=== PATIENT | female | born 1980 ===

== ENCOUNTER 2021-04-30 18:02 | Emergency (ER) | payer OTHER, SELFPAY ==
[2021-04-30 19:06] LABS: COVID-19 Test Negative (Negative); IDNOW Serial# 08D9AD1C
[2021-04-30 19:13] VITALS: BP 142/67; PULSE 84; RESP 18; TEMP 36.9; O2SAT 100; BMI 26.9
--- NOTE | 2021-04-30 19:51 | ED_ITS ---
HPI - URI/Sore Throat General Chief Complaint: Upper Respiratory Symptoms Stated Complaint: covid like Time Seen by Provider: 04/30/21 19:50 Source: patient Mode of arrival: ambulatory Limitations: no limitations History of Present Illness HPI Narrative: Patient claims multiple family members sick with COVID not vaccinated complaining of dry cough shortness of breath for last 2 days no fever no loss of taste sensation on arrival patient was saturating 100% on room air Related Data Previous Rx's Medication Instructions Recorded omeprazole 20 mg capsule,delayed 20 mg PO BID #180 cap 08/18/20 release Allergies Allergy/AdvReac Type Severity Reaction Status Date / Time naproxen [From NAPROSYN] Allergy Intermediate PALPITATION Unverified 04/30/21 19:12 S trazodone [TRAZODONE] Allergy Unknown UNKNOWN, Verified 04/30/21 19:12 palpitations Review of Systems Review of Systems: Yes all other systems are reviewed and are negative [facility] Past Medical History Medical History Asthma Breast cancer Fibromyalgia Surgical History History of lumpectomy Family History Family History Father Thrombocytopenia Mother HTN (hypertension) CVD (cardiovascular disease) CHF (congestive heart failure) Maternal Grandfather CVD (cardiovascular disease) S/P triple vessel bypass Sister No problems noted. Sister No problems noted. Daughter No problems noted. Daughter No problems noted. Daughter No problems noted. Social History Social History Advance Directives: No Patient : No Physical Exam Vital Signs: Vital Signs: Last Vital Signs Temp 98.4 F 04/30/21 19:13 Pulse 84 04/30/21 19:13 Resp 18 04/30/21 19:13 BP 142/67 H 04/30/21 19:13 Pulse Ox 100 04/30/21 19:13 Body Mass Index 26.9 Appearance: Alert. Oriented X3. No acute distress. Eyes: PERRLA, No Nystagmus ENT: Pharynx normal. Oral Mucosa moist Neck: Normal inspection. Neck supple. CVS: Normal heart rate and rhythm. Pulses normal. Respiratory: No respiratory distress. Equal air entry bilateral, no wheezing/rales/rhonchi Abdomen: Soft and nontender. Bowel sounds are present, Skin: Skin warm and dry. Normal skin color. Normal skin turgor. Extremities: No lower extremity edema. No calf tenderness Neuro: Oriented X 3. MDM - URI/Sore Throat Lab Data Labs: Lab Results 04/30/21 Range/Units 18:42 COVID-19 (TIFFANIE) Negative (Negative) COVID-19 Clin Com See Note Discharge Plan Discharge Clinical Impression: COVID-19 Patient Disposition: Home, Self-Care Instructions: COVID-19 (Coronavirus Disease 2019) (ED) Additional Instructions: Your exposed to COVID patients although your test is negative you may turn positive Self isolate as advised for 2 weeks Drink plenty of fluids Tylenol for fever and pain Prescriptions: No Action omeprazole 20 mg capsule,delayed release(DR/EC) 20 mg PO BID Qty: 180 RF: 0 Interventions: ED Discharge Assessment Last Done: 04/30/21 20:11 Discharge Date/Time: 04/30/21 20:17
== END 2021-04-30 20:17 | disposition home or self-care (01) ==
PROVIDERS: Emergency Provider Internal Medicine; PCP Family Medicine
DX: U07.1 COVID-19 (principal); R05 Cough; R06.02 Shortness of breath
CPT/HCPCS: 36415; 87635; 99283

== ENCOUNTER 2021-08-18 11:26 | Outpatient (REF) | payer OTHER, SELFPAY ==
[2021-08-18 11:48] LABS: MANUAL DIFF FLAG NO
[2021-08-18 12:00] LABS: Basophils Percent Auto 0.3 % (0-2); Eosinophils Absolute Auto 0.2 X10*3/uL (0.0-0.4); Eosinophils Percent Auto 2.2 % (0-4); Hematocrit 34.8 % (37.0-47.0); Hemoglobin 11.1 g/dl (12.0-16.0); Imm Gran Abs Auto 0.03 X10*3/uL (0.00-0.03); Imm Gran Pct Auto 0.3 % (0.0-0.4); Lymphocytes Absolute Auto 3.1 X10*3/uL (1.2-4.9); Lymphocytes Percent Auto 33.7 % (20-40); Mean Corpuscular HGB Conc 31.9 g/dl (31.0-35.0); Mean Corpuscular Hemoglobin 31.3 pg (27.0-33.0); Mean Platelet Volume 9.5 fL (9.4-12.3); Monocytes Absolute Auto 0.4 X10*3/uL (0.1-1.2); Neutrophils Absolute Auto 5.5 x10*3/uL (2.0-8.3); Neutrophils Percent Auto 59.5 % (45-73); Platelet Count 267 X10*3/uL (160-400); Red Blood Count 3.55 X10*6/uL (4.20-5.50); Red Cell Distribution Width 13.6 % (11.0-16.0); White Blood Count 9.2 X10*3/uL (4.8-10.8)
[2021-08-18 12:26] LABS: Alanine Aminotransferase 22 U/L (0-31); Aspartate Amino Transferase 52 U/L (5-31); Estimated Glomerular Filt Rate > 60
[2021-08-18 13:50] LABS: CT PCR NOT DETECTED (Not Detect.); NG PCR NOT DETECTED (Not Detect.)
[2021-08-19 03:37] LABS: Syphilis Screen Nonreactive (Nonreactive)
[2021-08-19 03:56] LABS: HBsAGNum1 0.16 S/CO (0.00-0.99); Hepatitis B Surface Antigen Negative (Negative)
[2021-08-19 15:30] LABS: HIV RNA PCR Qn Copies 30 copies/mL (NOT DETECTED); HIV RNA PCR Qn Log Copies 1.48 (NOT DETECTED)
[2021-08-25 10:01] LABS: HCV Log PCR <1.18 NOT DETECTED Log IU/mL (NOT DETECTED); HepC Viral Load <15 NOT DETECTED IU/mL (NOT DETECTED)
== END 2021-08-18 11:27 | disposition home or self-care (01) ==
LOC: HO.LAB 11:26
PROVIDERS: PCP Family Medicine; Visit Provider Internal Medicine Infectious Disease
DX: B20 Human immunodeficiency virus [HIV] disease (principal)
CPT/HCPCS: 82565; 84450; 84460; 85025; 86780; 87340; 87491; 87522; 87536; 87591

== ENCOUNTER 2021-09-29 12:30 | Outpatient (REF) | payer OTHER, SELFPAY ==
[2021-09-29 13:25] LABS: MANUAL DIFF FLAG NO
[2021-09-29 13:31] LABS: Basophils Percent Auto 0.4 % (0-2); Eosinophils Absolute Auto 0.1 X10*3/uL (0.0-0.4); Eosinophils Percent Auto 1.7 % (0-4); Hematocrit 34.3 % (37.0-47.0); Hemoglobin 10.8 g/dl (12.0-16.0); Imm Gran Abs Auto 0.01 X10*3/uL (0.00-0.03); Imm Gran Pct Auto 0.2 % (0.0-0.4); Lymphocytes Absolute Auto 1.9 X10*3/uL (1.2-4.9); Mean Corpuscular HGB Conc 31.5 g/dl (31.0-35.0); Mean Corpuscular Hemoglobin 31.1 pg (27.0-33.0); Mean Corpuscular Volume 98.8 fL (80.0-98.0); Mean Platelet Volume 9.7 fL (9.4-12.3); Monocytes Absolute Auto 0.4 X10*3/uL (0.1-1.2); Monocytes Percent Auto 7.7 % (2-11); Neutrophils Absolute Auto 2.9 x10*3/uL (2.0-8.3); Platelet Count 239 X10*3/uL (160-400); Red Blood Count 3.47 X10*6/uL (4.20-5.50); White Blood Count 5.3 X10*3/uL (4.8-10.8)
[2021-09-29 13:49] LABS: Alanine Aminotransferase 10 U/L (0-31); Albumin Level 3.9 g/dL (3.5-5.0); Alkaline Phosphatase 86 U/L (39-117); Anion Gap 8 (12-20); Aspartate Amino Transferase 22 U/L (5-31); Bilirubin Total 0.2 mg/dL (0.0-1.0); Blood Urea Nitrogen 17 mg/dL (9-16); Calcium 8.9 mg/dL (8.4-10.2); Carbon Dioxide 31 mmol/L (22-29); Chloride 105 mmol/L (96-108); Cholesterol 223 mg/dL; Estimated Glomerular Filt Rate > 60; Glucose Random 105 mg/dL (60-115); HDL Cholesterol 51 mg/dL; LDL Cholesterol Calculated 135 mg/dl; Potassium 3.9 mmol/L (3.3-5.1); Sodium 140 mmol/L (135-145); Total Protein 8.2 g/dL (6.5-8.0); Triglycerides 187 mg/dL
[2021-09-29 14:03] LABS: TSH reflex Free T4 2.91 uIU/mL (0.32-4.0)
[2021-09-30 03:41] LABS: HBS Num1 > 1000.00 mIU/mL (0-7.99); HBc Num1 0.24 S/CO (0.00-0.79); Hepatitis B Core Antibody Nonreactive (Nonreactive); ~HepC Num1 4.57 S/CO (0.00-0.79); ~Hepatitis B Surface Antibody REACTIVE (Nonreactive); ~Hepatitis C Antibody Reactive (Nonreactive)
[2021-09-30 03:49] LABS: Hepatitis B Surface Antigen Negative (Negative)
[2021-09-30 08:01] LABS: Follicle Stimulating Hormone 28.5 mIU/mL; Lutenizing Hormone 49.5 mIU/mL
[2021-10-02 15:17] LABS: TS Negative Control Passed; TS Panel A 0; TS Panel B 0; TS Positive Control Passed; TSpotTB Negative (Negative)
[2021-10-02 18:32] LABS: HIV RNA PCR Qn Copies 76300 Copies/mL; HIV RNA PCR Qn Log Copies 4.88 Log cps/mL
== END 2021-09-29 12:31 | disposition home or self-care (01) ==
LOC: HO.WFDLDS 12:30
PROVIDERS: Visit Provider Family Medicine
DX: Z00.00 Encounter for general adult medical examination without abnormal findings (principal); Z11.1 Encounter for screening for respiratory tuberculosis; Z11.3 Encounter for screening for infections with a predominantly sexual mode of transmission; Z11.4 Encounter for screening for human immunodeficiency virus [HIV]; F32.A Depression, unspecified; F41.9 Anxiety disorder, unspecified; D64.9 Anemia, unspecified; N91.2 Amenorrhea, unspecified; Z21 Asymptomatic human immunodeficiency virus [HIV] infection status
CPT/HCPCS: 36415; 80053; 80061; 83001; 83002; 84443; 85025; 86481; 86704; 86706; 86803; 87340; 87536

== ENCOUNTER 2021-12-02 12:44 | Emergency (ER) | payer OTHER, SELFPAY ==
--- NOTE | ~2021-12-02 | CT_ITS ---
EXAMINATION: CT ABDOMEN AND PELVIS WITHOUT CONTRAST CLINICAL INFORMATION: Right flank pain. COMPARISON: 06/28/2019 CT scan of the abdomen and pelvis. TECHNIQUE: Multidetector volumetric imaging was performed from the superior aspect of the liver through the pubic symphysis. Sagittal and coronal reformatted images were obtained on the technologist's workstation. Lack of intravenous and oral contrast limits visceral evaluation. This CT examination was performed using dose optimization techniques as appropriate, variously including the following: *Automated exposure control *Adjustment of mA and/or kV according to patient size (this includes techniques or standardized protocols for targeted exams where dose is matched to indication/reason for exam; i.e. extremities or head) *Use of iterative reconstruction technique DLP: 558 mGy-cm FINDINGS: LUNG BASES: The visualized lung bases are unremarkable. LIVER, GALLBLADDER, AND BILIARY TREE: Unremarkable. PANCREAS: Unremarkable. SPLEEN: Unremarkable. ADRENAL GLANDS: Unremarkable. KIDNEYS AND URETERS: Mild perinephric stranding is seen along the inferior margin of the right kidney. No nephrolithiasis or hydroureteronephrosis. BLADDER: Unremarkable. GASTROINTESTINAL TRACT: The stomach, small bowel and appendix are unremarkable. The colon shows mild to moderate scattered stool without surrounding abnormality. The rectum is unremarkable. ABDOMINAL WALL: No significant hernia is appreciated. LYMPH NODES: No lymphadenopathy. VASCULAR: Unremarkable. PELVIC VISCERA: Elongated anteverted and mildly retroflexed uterus without significant change. No adnexal abnormality. OSSEOUS STRUCTURES: L5-S1 mild disc space narrowing without significant change. CT/CT abdomen pelvis wo con IMPRESSION: 1. Mild perinephric stranding along the inferior margin of the right kidney without nephrolithiasis or hydronephrosis. This is nonspecific, but was not seen on the 2019 study. This could be chronic however, given the right flank pain, this could represent sequelae of a recently passed calculus. No other significant abnormality is seen. If pain persists or worsens, this can be monitored for change with renal ultrasound as indicated.
[2021-12-02 12:57] VITALS: BP 136/65; PULSE 102; RESP 19; TEMP 38.7; O2SAT 96; BMI 30.1
--- NOTE | 2021-12-02 13:05 | PC.NURSE ---
PT STATES SHE TOOK 6 IBUPROFEN 3 HOURS AGO AND CANNOT TAKE TYLENOL.
[2021-12-02 13:10] LABS: MANUAL DIFF FLAG NO
[2021-12-02 13:14] LABS: Appearance Urine CLOUDY; Color Urine YELLOW; Glucose Urine UA NEG (NEG); Leukocyte Esterase Urine 1+ (NEG); Nitrite Urine POS (NEG); UACC Culture Trigger YES; Urine Blood TRACE (NEG); Urine Ketones NEG (NEG); Urine Protein TRACE MG/DL (NEG-TRACE)
[2021-12-02 13:17] LABS: UPreg QC Valid YES; Urine Pregnancy NEGATIVE (NEGATIVE)
[2021-12-02 13:19] LABS: Basophils Percent Auto 0.3 % (0-2); Eosinophils Percent Auto 0.3 % (0-4); Hematocrit 35.3 % (37.0-47.0); Hemoglobin 11.5 g/dl (12.0-16.0); Imm Gran Abs Auto 0.05 X10*3/uL (0.00-0.03); Imm Gran Pct Auto 0.5 % (0.0-0.4); Lymphocytes Absolute Auto 1.8 X10*3/uL (1.2-4.9); Lymphocytes Percent Auto 19.6 % (20-40); Mean Corpuscular HGB Conc 32.6 g/dl (31.0-35.0); Mean Corpuscular Volume 95.1 fL (80.0-98.0); Mean Platelet Volume 9.5 fL (9.4-12.3); Monocytes Absolute Auto 0.6 X10*3/uL (0.1-1.2); Monocytes Percent Auto 6.7 % (2-11); Neutrophils Absolute Auto 6.7 x10*3/uL (2.0-8.3); Neutrophils Percent Auto 72.6 % (45-73); Platelet Count 233 X10*3/uL (160-400); Red Blood Count 3.71 X10*6/uL (4.20-5.50); Red Cell Distribution Width 13.5 % (11.0-16.0); White Blood Count 9.3 X10*3/uL (4.8-10.8)
[2021-12-02 13:25] LABS: WBC Urine 50-75 /HPF (0-4)
[2021-12-02 13:26] LABS: Bacteria Urine 3+ /LPF; Squamous Epithelial Cell Urine 1+ /LPF
[2021-12-02 13:35] LABS: Alanine Aminotransferase 10 U/L (0-31); Albumin Level 4.2 g/dL (3.5-5.0); Alkaline Phosphatase 84 U/L (39-117); Anion Gap 11 (12-20); Aspartate Amino Transferase 21 U/L (5-31); Bilirubin Total 0.5 mg/dL (0.0-1.0); Blood Urea Nitrogen 14 mg/dL (9-16); Calcium 9.3 mg/dL (8.4-10.2); Carbon Dioxide 27 mmol/L (22-29); Chloride 100 mmol/L (96-108); Creatinine Clr Calc Pharmacy 73.5; Estimated Glomerular Filt Rate > 60; Glucose Random 97 mg/dL (60-115); Potassium 3.7 mmol/L (3.3-5.1); Sodium 134 mmol/L (135-145); Total Protein 7.8 g/dL (6.5-8.0)
--- NOTE | 2021-12-02 14:00 | ED_ITS ---
HPI - General Adult General Chief complaint: Abdominal Pain Stated complaint: kidney pain/fever/BP low Time Seen by Provider: 12/02/21 13:13 Source: patient Mode of arrival: ambulatory Limitations: no limitations History of Present Illness HPI narrative: Patient comes to the emergency room complaining of fever, chills, dysuria, no hematuria, and complaining of right-sided flank pain. Patient states that she has history of UTIs and kidney stones. Patient states she has been symptomatic for about 2 days now. Patient states that she has not had any kidney stones for 4 years. However, recently she has not been following her diet. Related Data Previous Rx's Medication Instructions Recorded omeprazole 20 mg capsule,delayed 20 mg PO BID #180 cap 08/18/20 release clonidine HCl 0.1 mg tablet 0.1 mg PO BID PRN 30 Days #60 tab 10/26/21 duloxetine 30 mg capsule,delayed 30 mg PO BID 30 Days #60 cap 10/26/21 release levofloxacin 500 mg tablet 500 mg PO DAILY #10 tab 12/02/21 Allergies Allergy/AdvReac Type Severity Reaction Status Date / Time naproxen [From NAPROSYN] Allergy Intermediate PALPITATION Verified 11/13/21 08:57 S trazodone [TRAZODONE] Allergy Unknown UNKNOWN, Verified 11/13/21 08:57 palpitations Review of Systems Review of Systems: Constitutional : No Weight loss, complaining of fever and chills, No Night Sweats, No Fatigue, No Malaise ENT/Mouth : No Hearing loss, No Ear Pain, No Nasal Congestion, No Sinus Pain, No Hoarseness, No sore throat, No Rhinorrhea, No Swallowing Difficulty Eyes: No Eye Pain, No Swelling, No Redness, No Foreign Body, No Discharge, No Vision Changes Cardiovascular : No Chest Pain, No SOB, No Dyspnea on Exertion, No Orthopnea, No Edema, No Palpitations Respiratory : No Cough, No Sputum, No Wheezing, No Smoke Exposure, No Dyspnea Gastrointestinal : No Nausea, No Vomiting, No Diarrhea, No Constipation, No abdominal Pain, No Hematochezia, No Melena Genitourinary : no irregular bleeding complaining of dysuria and frequency, No Hematuria, No Urinary Incontinence, complaining of right-sided flank pain, No Urinary Flow Changes, No Hesitancy Musculoskeletal : No joint pain, No Myalgias, No Joint Swelling Skin : No Skin Lesions, No rash Neuro : No Weakness, No Numbness, No Paresthesias, No Loss of Consciousness, No Dizziness, No Headache Psych : No Anxiety/Panic, No Depression, No SI/HI/AH/VH, No Social Issues, Heme/Lymph: No Bruising, No Bleeding,No Lymphadenopathy Endocrine : No Polyuria, No Polydipsia, No Temperature Intolerance [facility] Past Medical History Medical History (Updated 12/02/21 @ 14:05 by Adelaida Mccarty MD) Asthma Breast cancer Fibromyalgia History of hepatitis C History of heroin abuse HIV positive Kidney stones Surgical History History of lumpectomy Family History Family History Father Thrombocytopenia Mother HTN (hypertension) CVD (cardiovascular disease) CHF (congestive heart failure) Maternal Grandfather CVD (cardiovascular disease) S/P triple vessel bypass Sister No problems noted. Sister No problems noted. Daughter No problems noted. Daughter No problems noted. Daughter No problems noted. Social History Social History Housing: Apartment Alcohol intake: never Patient Tobacco Use Status: Former Tobacco user Cigarettes Per Day: 2 e-Cigarette/Vaping Use: Never Used Second Hand Smoke Exposure: Yes Use of substances other than those prescribed or required for medical reasons: No Advance Directives: No Advance Directives Information Provided: Yes Patient : No service: No Current occupational status: unemployed Current occupational exposures/hazards: No Cognitive needs: No Hearing needs: No Vision needs: No Physical Exam ED Vital Signs: Vital Signs - 24 hr 12/02/21 12:57 12/02/21 14:16 Temperature 101.7 F H 102.8 F H Pulse Rate 102 H 86 Respiratory Rate 19 18 Blood Pressure 136/65 106/63 Pulse Oximetry 96 99 BMI result Body Mass Index 30.1 Const Other: Appearance: Alert. Oriented X3. No acute distress. She bring Eyes: Pupils equal, round and reactive to light. ENT: Pharynx normal. Neck: Normal inspection. Neck supple. No lymph nodes noted. No crepitus CVS: Normal heart rate and rhythm. Pulses normal. Normal S1 and S2 Respiratory: No respiratory distress. Breath sounds normal. No Wheezing. No rales Abdomen: Soft and nontender. No rigidity. No distention. Back: Positive CVA tenderness on the right side Skin: Skin warm and dry. Normal skin color. Normal skin turgor. Extremities: No lower extremity edema. No Lacerations. No Rash Neuro: Oriented X 3. No motor deficit. No sensory deficit. Moving all extremities. No slurred speech. CN 2 through 12 grossly intact Psych: calm, cooperative, normal affect Course Course Course Narrative: I discussed with the patient that she has pyelonephritis, IV fluids (based off an ideal body weight of 55 kg, patient is obese), Levaquin has been started. Also, I discussed with the patient that we will do a CT scan to make sure she does not stone that may be becoming infected. I discussed with the patient that I recommend hospitalization. However, patient states that she refuses to stay in the hospital. Her partner has a medical appointment today he cannot miss, and is unwilling to stay. Patient states that if anything changes she will come back. CT scan shows that possibly patient passed already a kidney stone. However, patient does have pyelonephritis. I discussed with the patient that she should be admitted, but again she refused admission. The IV antibiotics were ordered but per patient's nurse, they were not given. Patient states that she does not want IV antibiotics, she would like to have p.o. antibiotics and be discharged. After her antibiotics, patient will be leaving against medical advice. Patient is aware that the sepsis may worsen. Patient states she is aware of the risks, states that if anything changes she will return to the emergency room Medical Decision Making Lab Data Result diagrams: 12/02/21 13:06 12/02/21 13:06 Labs: Lab Results 12/02/21 12/02/21 12/02/21 Range/Units 13:06 13:06 13:06 WBC 9.3 (4.8-10.8) X10*3/uL RBC 3.71 L (4.20-5.50) X10*6/uL Hgb 11.5 L (12.0-16.0) g/dl Hct 35.3 L (37.0-47.0) % MCV 95.1 (80.0-98.0) fL MCH 31.0 (27.0-33.0) pg MCHC 32.6 (31.0-35.0) g/dl RDW 13.5 (11.0-16.0) % Plt Count 233 (160-400) X10*3/uL MPV 9.5 (9.4-12.3) fL Immature Gran % (Auto) 0.5 H (0.0-0.4) % Neut % (Auto) 72.6 (45-73) % Lymph % (Auto) 19.6 L (20-40) % Brule % (Auto) 6.7 (2-11) % Eos % (Auto) 0.3 (0-4) % Baso % (Auto) 0.3 (0-2) % Lymph # (Auto) 1.8 (1.2-4.9) X10*3/uL Brule # (Auto) 0.6 (0.1-1.2) X10*3/uL Eos # (Auto) 0.0 (0.0-0.4) X10*3/uL Baso # (Auto) 0.0 (0.0-0.2) X10*3/uL Abs Immat Gran (auto) 0.05 H (0.00-0.03) X10*3/uL Absolute Neuts (auto) 6.7 (2.0-8.3) x10*3/uL Absolute Nucleated RBC 0.000 (0.0-0.012) X10*3/uL Nucleated RBC % (auto) 0.0 (0.0-0.2) /100WBC Sodium 134 L (135-145) mmol/L Potassium 3.7 (3.3-5.1) mmol/L Chloride 100 (96-108) mmol/L Carbon Dioxide 27 (22-29) mmol/L Anion Gap 11 L (12-20) BUN 14 (9-16) mg/dL Creatinine 0.97 (0.5-1.4) mg/dL Estim Creat Clear Calc 73.5 Estimated GFR > 60 Random Glucose 97 (60-115) mg/dL Lactic Acid (0.5-2.0) mmol/L Calcium 9.3 (8.4-10.2) mg/dL Total Bilirubin 0.5 (0.0-1.0) mg/dL AST 21 (5-31) U/L ALT 10 (0-31) U/L Alkaline Phosphatase 84 (39-117) U/L Total Protein 7.8 (6.5-8.0) g/dL Albumin 4.2 (3.5-5.0) g/dL Lipase (8-78) U/L Urine Color YELLOW Urine Appearance CLOUDY Urine pH 6.0 (5.0-8.0) Ur Specific [place] 1.020 (1.005-1.025) Urine Protein TRACE (NEG-TRACE) MG/DL Urine Glucose (UA) NEG (NEG) MG/DL Urine Ketones NEG (NEG) MG/DL Urine Blood TRACE (NEG) Urine Nitrite POS H (NEG) Ur Leukocyte Esterase 1+ H (NEG) Urine RBC 1-4 (0) /HPF Urine WBC 50-75 H (0-4) /HPF Ur Squamous Epith Cells 1+ /LPF Urine Bacteria 3+ /LPF Urine Test (NEGATIVE) COVID-19 (TIFFANIE) (Negative) COVID-19 Clin Com Influenza Type A (HUMAIRA) (Negative) Influenza Type B (HUMAIRA) (Negative) Influenza A & B Note 12/02/21 12/02/21 12/02/21 Range/Units 13:06 14:11 14:11 WBC (4.8-10.8) X10*3/uL RBC (4.20-5.50) X10*6/uL Hgb (12.0-16.0) g/dl Hct (37.0-47.0) % MCV (80.0-98.0) fL MCH (27.0-33.0) pg MCHC (31.0-35.0) g/dl RDW (11.0-16.0) % Plt Count (160-400) X10*3/uL MPV (9.4-12.3) fL Immature Gran % (Auto) (0.0-0.4) % Neut % (Auto) (45-73) % Lymph % (Auto) (20-40) % Brule % (Auto) (2-11) % Eos % (Auto) (0-4) % Baso % (Auto) (0-2) % Lymph # (Auto) (1.2-4.9) X10*3/uL Brule # (Auto) (0.1-1.2) X10*3/uL Eos # (Auto) (0.0-0.4) X10*3/uL Baso # (Auto) (0.0-0.2) X10*3/uL Abs Immat Gran (auto) (0.00-0.03) X10*3/uL Absolute Neuts (auto) (2.0-8.3) x10*3/uL Absolute Nucleated RBC (0.0-0.012) X10*3/uL Nucleated RBC % (auto) (0.0-0.2) /100WBC Sodium (135-145) mmol/L Potassium (3.3-5.1) mmol/L Chloride (96-108) mmol/L Carbon Dioxide (22-29) mmol/L Anion Gap (12-20) BUN (9-16) mg/dL Creatinine (0.5-1.4) mg/dL Estim Creat Clear Calc Estimated GFR Random Glucose (60-115) mg/dL Lactic Acid (0.5-2.0) mmol/L Calcium (8.4-10.2) mg/dL Total Bilirubin (0.0-1.0) mg/dL AST (5-31) U/L ALT (0-31) U/L Alkaline Phosphatase (39-117) U/L Total Protein (6.5-8.0) g/dL Albumin (3.5-5.0) g/dL Lipase 6 L (8-78) U/L Urine Color Urine Appearance Urine pH (5.0-8.0) Ur Specific [place] (1.005-1.025) Urine Protein (NEG-TRACE) MG/DL Urine Glucose (UA) (NEG) MG/DL Urine Ketones (NEG) MG/DL Urine Blood (NEG) Urine Nitrite (NEG) Ur Leukocyte Esterase (NEG) Urine RBC (0) /HPF Urine WBC (0-4) /HPF Ur Squamous Epith Cells /LPF Urine Bacteria /LPF Urine Test NEGATIVE (NEGATIVE) COVID-19 (TIFFANIE) (Negative) COVID-19 Clin Com Influenza Type A (HUMAIRA) Negative (Negative) Influenza Type B (HUMAIRA) Negative (Negative) Influenza A & B Note See Note 12/02/21 12/02/21 Range/Units 14:11 14:11 WBC (4.8-10.8) X10*3/uL RBC (4.20-5.50) X10*6/uL Hgb (12.0-16.0) g/dl Hct (37.0-47.0) % MCV (80.0-98.0) fL MCH (27.0-33.0) pg MCHC (31.0-35.0) g/dl RDW (11.0-16.0) % Plt Count (160-400) X10*3/uL MPV (9.4-12.3) fL Immature Gran % (Auto) (0.0-0.4) % Neut % (Auto) (45-73) % Lymph % (Auto) (20-40) % Brule % (Auto) (2-11) % Eos % (Auto) (0-4) % Baso % (Auto) (0-2) % Lymph # (Auto) (1.2-4.9) X10*3/uL Brule # (Auto) (0.1-1.2) X10*3/uL Eos # (Auto) (0.0-0.4) X10*3/uL Baso # (Auto) (0.0-0.2) X10*3/uL Abs Immat Gran (auto) (0.00-0.03) X10*3/uL Absolute Neuts (auto) (2.0-8.3) x10*3/uL Absolute Nucleated RBC (0.0-0.012) X10*3/uL Nucleated RBC % (auto) (0.0-0.2) /100WBC Sodium (135-145) mmol/L Potassium (3.3-5.1) mmol/L Chloride (96-108) mmol/L Carbon Dioxide (22-29) mmol/L Anion Gap (12-20) BUN (9-16) mg/dL Creatinine (0.5-1.4) mg/dL Estim Creat Clear Calc Estimated GFR Random Glucose (60-115) mg/dL Lactic Acid 0.6 (0.5-2.0) mmol/L Calcium (8.4-10.2) mg/dL Total Bilirubin (0.0-1.0) mg/dL AST (5-31) U/L ALT (0-31) U/L Alkaline Phosphatase (39-117) U/L Total Protein (6.5-8.0) g/dL Albumin (3.5-5.0) g/dL Lipase (8-78) U/L Urine Color Urine Appearance Urine pH (5.0-8.0) Ur Specific [place] (1.005-1.025) Urine Protein (NEG-TRACE) MG/DL Urine Glucose (UA) (NEG) MG/DL Urine Ketones (NEG) MG/DL Urine Blood (NEG) Urine Nitrite (NEG) Ur Leukocyte Esterase (NEG) Urine RBC (0) /HPF Urine WBC (0-4) /HPF Ur Squamous Epith Cells /LPF Urine Bacteria /LPF Urine Test (NEGATIVE) COVID-19 (TIFFANIE) Negative (Negative) COVID-19 Clin Com See Note Influenza Type A (HUMAIRA) (Negative) Influenza Type B (HUMAIRA) (Negative) Influenza A & B Note Imaging Data CT scan - abdomen: Radiologist's impression: FINDINGS: LUNG BASES: The visualized lung bases are unremarkable.? LIVER, GALLBLADDER, AND BILIARY TREE: Unremarkable. PANCREAS: Unremarkable.? SPLEEN: Unremarkable.? ADRENAL GLANDS: Unremarkable.? KIDNEYS AND URETERS: Mild perinephric stranding is seen along the inferior margin of the right kidney. No nephrolithiasis or hydroureteronephrosis. BLADDER: Unremarkable.? GASTROINTESTINAL TRACT: The stomach, small bowel and appendix are unremarkable. The colon shows mild to moderate scattered stool without surrounding abnormality. The rectum is unremarkable. ABDOMINAL WALL: No significant hernia is appreciated.? LYMPH NODES: No lymphadenopathy. VASCULAR: Unremarkable. PELVIC VISCERA: Elongated anteverted and mildly retroflexed uterus without significant change. No adnexal abnormality.? OSSEOUS STRUCTURES: L5-S1 mild disc space narrowing without significant change. CT/CT abdomen pelvis wo con IMPRESSION: ? 1. Mild perinephric stranding along the inferior margin of the right kidney without nephrolithiasis or hydronephrosis. This is nonspecific, but was not seen on the 2019 study. This could be chronic however, given the right flank pain, this could represent sequelae of a recently passed calculus. No other significant abnormality is seen. If pain persists or worsens, this can be monitored for change with renal ultrasound as indicated. Discharge Plan Discharge Clinical Impression: Pyelonephritis Patient Disposition: Left Against Medical Advice Instructions: Kidney Infection (ED) Additional Instructions: You are leaving against medical advice, we advise you to stay in the hospital f or IV antibiotic treatment. Please follow-up with your primary care physician tomorrow. If you have any worsening or new symptoms, please return to the emergency room or call 911 Prescriptions: New levofloxacin 500 mg tablet 500 mg PO DAILY Qty: 10 0RF No Action omeprazole 20 mg capsule,delayed release(DR/EC) 20 mg PO BID Qty: 180 0RF clonidine HCl 0.1 mg tablet 0.1 mg PO BID PRN (Reason: anxiety) 30 Days Qty: 60 0RF duloxetine 30 mg capsule,delayed release(DR/EC) 30 mg PO BID 30 Days Qty: 60 1RF
[2021-12-02 14:16] VITALS: BP 106/63; PULSE 86; RESP 18; TEMP 39.3; O2SAT 99
[2021-12-02 14:31] LABS: COVID-19 Test Negative (Negative); Lactic Acid 0.6 mmol/L (0.5-2.0)
[2021-12-02 14:33] LABS: Influenza A Negative (Negative); Influenza B2 Negative (Negative)
[2021-12-02 14:36] LABS: Lipase 6 U/L (8-78)
[2021-12-02] MEDS: Acetaminophen 325 MG TABLET 975 MG PO (15:58)
[2021-12-02] MEDS: levoFLOXacin 500 MG TABLET PO (15:59)
== END 2021-12-02 16:05 | disposition left against medical advice (07) ==
PROVIDERS: Emergency Medicine Emergency Medical Services; Emergency Provider Emergency Medicine; PCP Family Medicine
DX: N12 Tubulo-interstitial nephritis, not specified as acute or chronic (principal); R10.9 Unspecified abdominal pain; R50.9 Fever, unspecified; R30.0 Dysuria; Z20.822 Contact with and (suspected) exposure to COVID-19; Z79.899 Other long term (current) drug therapy; Z87.891 Personal history of nicotine dependence
CPT/HCPCS: 36415; 74176; 80053; 81001; 81025; 83605; 83690; 85025; 87040; 87086; 87088; 87186; 87502; 87635; 96361; 96374; 99284

== ENCOUNTER 2021-12-10 14:03 | Outpatient (REF) | payer OTHER, SELFPAY ==
[2021-12-10 14:27] LABS: MANUAL DIFF FLAG NO
[2021-12-10 14:58] LABS: Basophils Percent Auto 0.2 % (0-2); Eosinophils Absolute Auto 0.2 X10*3/uL (0.0-0.4); Eosinophils Percent Auto 2.9 % (0-4); Hemoglobin 10.6 g/dl (12.0-16.0); Imm Gran Abs Auto 0.02 X10*3/uL (0.00-0.03); Imm Gran Pct Auto 0.4 % (0.0-0.4); Lymphocytes Absolute Auto 2.7 X10*3/uL (1.2-4.9); Lymphocytes Percent Auto 51.6 % (20-40); Mean Corpuscular HGB Conc 31.2 g/dl (31.0-35.0); Mean Corpuscular Hemoglobin 30.2 pg (27.0-33.0); Mean Corpuscular Volume 96.9 fL (80.0-98.0); Mean Platelet Volume 10.2 fL (9.4-12.3); Monocytes Absolute Auto 0.2 X10*3/uL (0.1-1.2); Monocytes Percent Auto 3.7 % (2-11); Neutrophils Absolute Auto 2.1 x10*3/uL (2.0-8.3); Neutrophils Percent Auto 41.2 % (45-73); Platelet Count 268 X10*3/uL (160-400); Red Blood Count 3.51 X10*6/uL (4.20-5.50); Red Cell Distribution Width 13.4 % (11.0-16.0); White Blood Count 5.1 X10*3/uL (4.8-10.8)
[2021-12-10 15:03] LABS: Prothrombin Time 11.9 SEC (9.9-13.0)
[2021-12-10 15:18] LABS: Alanine Aminotransferase 10 U/L (0-31); Albumin Level 3.9 g/dL (3.5-5.0); Aspartate Amino Transferase 20 U/L (5-31); Bilirubin Total 0.3 mg/dL (0.0-1.0); Estimated Glomerular Filt Rate > 60
[2021-12-10 16:39] LABS: CT PCR NOT DETECTED (Not Detect.); NG PCR NOT DETECTED (Not Detect.)
[2021-12-11 07:38] LABS: HBsAGNum1 0.16 S/CO (0.00-0.99); Hepatitis B Surface Antigen Negative (Negative)
[2021-12-11 07:54] LABS: Syphilis Screen Nonreactive (Nonreactive)
[2021-12-11 13:02] LABS: HCV RNA PCR Qn <1.18 NOT DETECTED Log IU/mL (NOT DETECTED); HCV RNA PCR Qn <15 NOT DETECTED IU/mL (NOT DETECTED)
[2021-12-11 14:06] LABS: HIV RNA PCR Qn Copies 1020 copies/mL (NOT DETECTED); HIV RNA PCR Qn Log Copies 3.01 (NOT DETECTED)
[2021-12-11 14:55] LABS: Absolute CD3 Count 1416 cells/uL (840-3060); Absolute CD4 Count 821 cells/uL (490-1740); Absolute CD8 Count 584 cells/uL (180-1170); Absolute Lymphocytes 2185 cells/uL (850-3900); CD4 CD8 Ratio 1.41 (0.86-5.00); Percent CD3 Cells 65 % (57-85); Percent CD4 Cells 38 % (30-61); Percent CD8 Cells 27 % (12-42)
[2021-12-14 15:11] LABS: FIB-ALT 11 U/L (6-29); FIB-Alpha-2-Macroglobulin 234 mg/dL (106-279); FIB-Apolipoprotein A1 132 mg/dL (101-198); FIB-GGT 11 U/L (3-55); FIB-Haptoglobin 254 mg/dL (43-212); FIB-Total Bilirubin 0.2 mg/dL (0.2-1.2); Liver Fibrosis Score 0.06; Liver Fibrosis Stage F0; Nec Inflam Act Grade A0; Nec Inflam Act Score 0.02
== END 2021-12-10 14:04 | disposition home or self-care (01) ==
LOC: HO.LAB 14:03
PROVIDERS: PCP Family Medicine; Visit Provider Internal Medicine Infectious Disease
DX: B20 Human immunodeficiency virus [HIV] disease (principal); B19.20 Unspecified viral hepatitis C without hepatic coma
CPT/HCPCS: 81596; 82040; 82247; 82565; 84450; 84460; 85025; 85610; 86359; 86360; 86780; 87340; 87491; 87522; 87536; 87591; 87902

== ENCOUNTER → 2022-01-21 11:50 | Outpatient (BNVA) | payer OTHER, SELFPAY | PROVIDERS: PCP Family Medicine; Referring Provider Family Medicine; Visit Provider Internal Medicine Gastroenterology | DX: R11.0 Nausea (principal); R10.84 Generalized abdominal pain; Z86.19 Personal history of other infectious and parasitic diseases | CPT/HCPCS: 99212 ==

== ENCOUNTER 2022-05-22 05:21 | Emergency (ER) | payer OTHER, SELFPAY ==
[2022-05-22 05:38] VITALS: BP 132/87; BP 140/60; PULSE 80; PULSE 84; RESP 16; TEMP 36.7; O2SAT 100; BMI 33.8
[2022-05-22 06:08] LABS: Strep A Nucleic Acid Negative (Negative)
[2022-05-22 06:34] LABS: COVID-19 Test Negative (Negative); IDNOW Serial# 55D5AD1C
--- NOTE | 2022-05-22 08:49 | ED.URI ---
HPI - URI/Sore Throat General Chief Complaint: General Medical Stated Complaint: multiple Complaints Time Seen by Provider: 05/22/22 08:43 Source: patient Mode of arrival: ambulatory Limitations: no limitations History of Present Illness HPI Narrative: 41-year-old female with a past medical history of asthma, breast cancer, fibromyalgia, hepatitis-C, heroin abuse, HIV positive and kidney stones presenting to the ER with complaints of bilateral ear pain, sore throat in her intermittent productive cough with clear/yellow colored sputum for the past 3 days worse today. She reports ?it feels like I am swallowing glass?. She reports she has been taking Motrin and Tylenol [id number] although no symptomatic relief for her throat pain/irritation. She denies any measured fevers, dizziness, headaches, neck pain/stiffness, trouble swallowing or breathing, chest pain or shortness of breath, dyspnea on exertion, orthopnea, palpitations, paresthesias, nausea/vomiting/diarrhea constipation, black or bloody stools, rashes, recent travel or sick contacts or recent oral intercourse, changes in voice, or any other symptoms complaints or concerns at this time. MD elicited complaint: cough, sore throat and other (Bilateral ear pain) Pertinent past history: HIV and asthma Onset (ago): day(s) (3) Consistency: constant and progressively worsening Severity: mild Description of mucous: clear, watery and yellow Able to tolerate fluids by mouth: Yes Exacerbating factors: swallowing Relieving factors: nothing Associated symptoms: chills, myalgias, sore throat, cough and ear pain Treatments prior to arrival: acetaminophen and ibuprofen Related Data Previous Rx's Medication Instructions Recorded duloxetine 30 mg capsule,delayed 30 mg PO BID 30 days #60 caps 10/26/21 release omeprazole 20 mg capsule,delayed 20 mg PO BID #180 caps 12/22/21 release bisacodyl 5 mg tablet,delayed 10 mg PO ONCE colon prep 3 days #6 01/21/22 release (Dulcolax (bisacodyl)) tabs polyethylene glycol 3350 17 17 g PO DAILY colon prep 1 day 01/21/22 gram/dose oral powder (Miralax) #238 grams sennosides 8.6 mg-docusate sodium 1 tab-cap PO BEDTIME 30 days #30 01/21/22 50 mg tablet (Laxative Stool tabs Softener With Senna) clonidine HCl 0.1 mg tablet 0.1 mg PO BID PRN anxiety 30 days 04/27/22 #60 tabs amoxicillin 875 mg-potassium 1 tab PO BID Bacterial pharyngitis 05/22/22 clavulanate 125 mg tablet 10 days #20 tabs codeine 10 mg-guaifenesin 100 mg/5 5 ml PO Q6H PRN cold symptoms #120 05/22/22 mL oral liquid (Guaifenesin AC) mL lidocaine HCl 2 % mucosal solution 1 appl mucous membrane TID PRN 05/22/22 (Lidocaine Viscous) pain #100 mL Allergies Allergy/AdvReac Type Severity Reaction Status Date / Time naproxen [From NAPROSYN] Allergy Intermediate PALPITATION Verified 01/21/22 11:55 S trazodone [TRAZODONE] Allergy Unknown UNKNOWN, Verified 01/21/22 11:55 palpitations Review of Systems Review of Systems: Constitutional : No Weight loss, No Fever, No Chills, No Night Sweats, No Fatigue, No Malaise ENT/Mouth : No Hearing loss, + Ear Pain, No Nasal Congestion, No Sinus Pain, No Hoarseness, + sore throat, No Rhinorrhea, No Swallowing Difficulty Eyes: No Eye Pain, No Swelling, No Redness, No Foreign Body, No Discharge, No Vision Changes Cardiovascular : No Chest Pain, No SOB, No Dyspnea on Exertion, No Orthopnea, No Edema, No Palpitations Respiratory : + Cough, + Sputum, No Wheezing, No Smoke Exposure, No Dyspnea Gastrointestinal : No Nausea, No Vomiting, No Diarrhea, No Constipation, No abdominal Pain, No Hematochezia, No Melena Genitourinary : no irregular bleeding, No Dysuria, No Urinary Frequency, No Hematuria, No Urinary Incontinence, No Urgency, No Flank Pain, No Urinary Flow Changes, No Hesitancy Musculoskeletal : No joint pain, No Myalgias, No Joint Swelling Skin : No Skin Lesions, No rash Neuro : No Weakness, No Numbness, No Paresthesias, No Loss of Consciousness, No Dizziness, No Headache Psych : No Anxiety/Panic, No Depression, No SI/HI/AH/VH, No Social Issues, Heme/Lymph: No Bruising, No Bleeding,No Lymphadenopathy Endocrine : No Polyuria, No Polydipsia, No Temperature Intolerance Yes all other systems are reviewed and are negative [facility] Past Medical History Attestation statement: The following information was validated with the patient. Source: old records reviewed and nursing notes reviewed Medical History Asthma Breast cancer Fibromyalgia History of hepatitis C History of heroin abuse HIV positive Kidney stones Surgical History History of lumpectomy Family History Family History Father Thrombocytopenia Mother HTN (hypertension) CVD (cardiovascular disease) CHF (congestive heart failure) Maternal Grandfather CVD (cardiovascular disease) S/P triple vessel bypass Sister No problems noted. Sister No problems noted. Daughter No problems noted. Daughter No problems noted. Daughter No problems noted. Social History Social History Housing: Apartment Alcohol intake: never Patient Tobacco Use Status: Former Tobacco user Cigarettes Per Day: 2 e-Cigarette/Vaping Use: Never Used Second Hand Smoke Exposure: Yes Advance Directives: No Advance Directives Information Provided: No service: No Current occupational status: unemployed Current occupational exposures/hazards: No Cognitive needs: No Hearing needs: No Vision needs: No Physical Exam Vital Signs: Vital Signs: Last Vital Signs Temp 98.0 F 05/22/22 05:38 Pulse 84 05/22/22 05:38 Resp 16 05/22/22 05:38 BP 132/87 05/22/22 05:38 Pulse Ox 100 05/22/22 05:38 O2 Del Method 05/22/22 05:38 BMI result Body Mass Index 33.8 vital signs have been reviewed as normal and appeared to be correct. Blood pressure normal. Heart rate normal. Respiration rate normal. Temperature normal. Oxygen saturation normal. Appearance: Alert. Oriented X3. No acute distress. Head: Normal external exam. Normocephalic. Atraumatic. Eyes: PERRLA. EOMI. Conjunctiva and sclera normal. Eyelids normal. ENT: EAC normal. TM's Normal. Posterior pharynx/tonsils erythematous with scattered exudate noted. Although soft and hard palate are within normal limit Uvula midline. Moist mucous membranes. No lesions/ulcerations or masses noted on the tongue. Normal voice. No trismus noted. No drooling noted. No muffled voice noted. Not consistent with peritonsillar/laryngeal/dental or gingival abscess. Neck: Normal inspection. Neck supple. FROM. No adenopathy. Thyroid Normal. No tracheal deviation noted. No crepitus is noted. No meningeal signs. No neck mass noted. No signs of trauma noted. CVS: Normal heart rate and rhythm. Heart sound normal. Pulses normal throughout. No murmurs/rales/gallops. Respiratory: No respiratory distress. Painless inspiration. Breath sounds normal. No wheezes/rales/rhonchi noted. Chest nontender. No crepitus is noted. No accessory muscle usage noted or decreased air movement noted. No signs of trauma. Abdomen: Soft and nontender. Nondistended. No guarding. No rigidity. Bowel sounds normal in all 4 quadrants. No distention noted. No organomegaly noted. No visible injury noted. Back: Full range of motion noted. Nontender. Skin: Skin warm and dry. Normal skin color. Normal skin turgor. No rashes/lesions/lacerations noted. Extremities: Extremities exhibit normal range of motion and nontender. Neuro: Oriented X 3. No motor deficit. No sensory deficit. Reflexes normal. Normal steady gait. No focal neuro deficits noted. CN's II-XII intact bilaterally? Vascular: + radial pulses/+ 2 distal pedal pulses/+2 dorsalis pedis b/l. Normal cap refill. No cyanosis noted to upper extremity nails and lower extremity toes nails. Course Course Course Narrative: Patient negative for COVID/strep although on my exam it appears that the patient does have bacterial pharyngitis. No additional labs or imaging are indicated as patient vitals are within normal limits neck is soft nontender and supple with full range of motion no meningeal sign noted. Not consistent with peritonsillar abscess/range of abscess/dental or gingival abscess. Patient tolerating secretions well. Uvula midline. Normal voice. Will DC home with antibiotics and symptomatic treatment instructions return if any new or worsening symptoms follow up with primary care provider. Patient understands agrees with this plan. MDM - URI/Sore Throat Medical Records Attestation: I reviewed the patient's medical records. Lab Data Attestation: I reviewed the patient's lab results. Labs: Lab Results 05/22/22 05/22/22 Range/Units 05:47 05:47 COVID-19 (TIFFANIE) Negative (Negative) COVID-19 Clin Com See Note S. pyogenes GrpA HUMAIRA Negative (Negative) Discharge Plan Discharge Clinical Impression: Acute bacterial pharyngitis Patient Disposition: Home, Self-Care Instructions: Pharyngitis (ED) Prescriptions: New amoxicillin-pot clavulanate 875-125 mg tablet 1 tab PO BID 10 Days Qty: 20 0RF lidocaine HCl [Lidocaine Viscous] 2 % solution 1 appl mucous membrane TID PRN (Reason: pain) Qty: 100 0RF codeine-guaifenesin [Guaifenesin AC] 10-100 mg/5 mL liquid 5 ml PO Q6H PRN (Reason: cold symptoms) Qty: 120 0RF No Action duloxetine 30 mg capsule,delayed release(DR/EC) 30 mg PO BID 30 Days Qty: 60 1RF omeprazole 20 mg capsule,delayed release(DR/EC) 20 mg PO BID Qty: 180 0RF clonidine HCl 0.1 mg tablet 0.1 mg PO BID PRN (Reason: anxiety) 30 Days Qty: 60 0RF bisacodyl [Dulcolax (bisacodyl)] 5 mg tablet,delayed release (DR/EC) 10 mg PO ONCE 3 Days Qty: 6 0RF Rx Instructions: Take 2 tablets at 12 pm starting 3 days before colonoscopy polyethylene glycol 3350 [Miralax] 17 gram/dose powder 17 g PO DAILY 1 Days Qty: 238 0RF Rx Instructions: Mix Miralax with 64 oz(8 cups) of Crystal light. Take 2 tablets of Dulcolax qt 12 pm. Wait to have your 1st bowel movement, then begin drinking Miralax. Drink a glass of Miralax every 10-15 minutes until you are finished. You will drink at least another 4 cups of clear liquid of your choice over the next 2 hours. Please drink as many clear liquids as possible You may have clear liquids up to four hours before your procedure sennosides-docusate sodium [Lax Stool Softener With Senna] 8.6-50 mg tablet 1 tab-cap PO BEDTIME 30 Days Qty: 30 3RF Referrals: José Antonio Neumann MD [Primary Care Provider] - 2 days Stand Alone Forms: Work/School Release
== END 2022-05-22 09:06 | disposition home or self-care (01) ==
PROVIDERS: Emergency Medicine; Emergency Provider Emergency Medicine; PCP Family Medicine
DX: J02.9 Acute pharyngitis, unspecified (principal); Z20.822 Contact with and (suspected) exposure to COVID-19; B20 Human immunodeficiency virus [HIV] disease
CPT/HCPCS: 36415; 87635; 87651; 99283

== ENCOUNTER 2022-08-06 11:26 | Outpatient (REF) | payer OTHER, SELFPAY ==
[2022-08-06 12:52] LABS: COVID-19 Test Negative (Negative); IDNOW Serial# 16C4AD1C
== END 2022-08-06 11:27 | disposition home or self-care (01) ==
LOC: HO.LAB 11:26
PROVIDERS: Visit Provider Internal Medicine
DX: Z20.822 Contact with and (suspected) exposure to COVID-19 (principal)
CPT/HCPCS: 87635; C9803

== ENCOUNTER → 2022-12-31 11:38 | Day surgery (SDC) | payer OTHER, SELFPAY ==
--- NOTE | 2022-11-12 12:51 | HO.ANESPROP2 ---
HPI - Anesthesia Eval Consult details Narrative: 42yo F for Colonoscopy PMFSH Active Problems Active Problems: All Active Problems (Updated 05/23/22 @ 00:01 by Jose Arauz) History of hepatitis C (Acute) Chronic constipation (Acute) HIV positive (Acute) Nausea (Acute) Back pain (Acute) Anemia (Acute) Annual physical exam (Acute) Hyperlipidemia (Acute) Hepatitis C infection (Acute) Immunization counseling (Acute) Hair loss (Acute) Hepatitis C (Acute) History of COVID-19 (Acute) Anxiety and depression (Acute) Mild anemia (Acute) Generalized abdominal pain (Acute) COVID-19 (Acute) Past Medical History Medical History Asthma Breast cancer Fibromyalgia History of hepatitis C History of heroin abuse HIV positive Kidney stones Family History Family History Father Thrombocytopenia Mother HTN (hypertension) CVD (cardiovascular disease) CHF (congestive heart failure) Maternal Grandfather CVD (cardiovascular disease) S/P triple vessel bypass Sister No problems noted. Sister No problems noted. Daughter No problems noted. Daughter No problems noted. Daughter No problems noted. Surgical History Surgical History History of lumpectomy Social History Social History Housing: Apartment Alcohol intake: never Patient Tobacco Use Status: Former Tobacco user Cigarettes Per Day: 2 e-Cigarette/Vaping Use: Never Used Second Hand Smoke Exposure: Yes service: No Current occupational status: unemployed Current occupational exposures/hazards: No Cognitive needs: No Hearing needs: No Vision needs: No Meds Allergies Allergy/AdvReac Type Severity Reaction Status Date / Time naproxen [From NAPROSYN] Allergy Intermediate PALPITATION Verified 01/21/22 11:55 S trazodone [TRAZODONE] Allergy Unknown UNKNOWN, Verified 01/21/22 11:55 palpitations Exam Exam Date and Time: November 12, 2022 1251 Assessment and Plan Assessment Anesthesia Assessment: Chart Reviewed
--- NOTE | 2022-12-30 08:55 | HO.ANESPROP2 ---
HPI - Anesthesia Eval Consult details Narrative: 42yo F for Colonoscopy Hx IVDA PMFSH Active Problems Active Problems: All Active Problems (Updated 05/23/22 @ 00:01 by Jose Arauz) History of hepatitis C (Acute) Chronic constipation (Acute) HIV positive (Acute) Nausea (Acute) Back pain (Acute) Anemia (Acute) Annual physical exam (Acute) Hyperlipidemia (Acute) Hepatitis C infection (Acute) Immunization counseling (Acute) Hair loss (Acute) Hepatitis C (Acute) History of COVID-19 (Acute) Anxiety and depression (Acute) Mild anemia (Acute) Generalized abdominal pain (Acute) COVID-19 (Acute) Past Medical History Medical History Asthma Breast cancer Fibromyalgia History of hepatitis C History of heroin abuse HIV positive Kidney stones Family History Family History Father Thrombocytopenia Mother HTN (hypertension) CVD (cardiovascular disease) CHF (congestive heart failure) Maternal Grandfather CVD (cardiovascular disease) S/P triple vessel bypass Sister No problems noted. Sister No problems noted. Daughter No problems noted. Daughter No problems noted. Daughter No problems noted. Surgical History Surgical History History of lumpectomy Social History Social History Housing: Apartment Alcohol intake: never Patient Tobacco Use Status: Former Tobacco user Cigarettes Per Day: 2 e-Cigarette/Vaping Use: Never Used Second Hand Smoke Exposure: Yes service: No Current occupational status: unemployed Current occupational exposures/hazards: No Cognitive needs: No Hearing needs: No Vision needs: No Meds Allergies Allergy/AdvReac Type Severity Reaction Status Date / Time naproxen [From NAPROSYN] Allergy Intermediate PALPITATION Verified 12/28/22 12:12 S trazodone [TRAZODONE] Allergy Unknown UNKNOWN, Verified 12/28/22 12:12 palpitations Exam Exam Date and Time: December 30, 2022 0855 Assessment and Plan Assessment Anesthesia Assessment: Chart Reviewed
--- NOTE | 2022-12-31 11:46 | MHC.SHP ---
Pre-Procedural Eval Section A Date of Service: 12/31/22 The patient is an INPATIENT: No The History & Physical has been completed within 30 days and I have reviewed it.: No Section B Chief Complaint: Generalized abdominal pain,nausea Relevant Family History (Specify if Yes): No Relevant Social History: Tobacco Use (former smoker) Present Medications: see Short Stay Collaborative assessment Medical History: Significant History (Asthma Breast cancer Fibromyalgia History of hepatitis C History of heroin abuse HIV positive Kidney stones) History of Previous Operations: Relevant previous surgery/procedure and date(s) (History of lumpectomy) Allergies: Allergies Allergy/AdvReac Type Severity Reaction Status Date / Time naproxen [From NAPROSYN] Allergy Intermediate PALPITATION Verified 12/28/22 12:12 S trazodone [TRAZODONE] Allergy Unknown UNKNOWN, Verified 12/28/22 12:12 palpitations Plan Diagnosis/Plan: Change (Procedure cancelled by anesthesia since pt's urine drug screen was positive for opiates, fentanyl and cocaine) I have reviewed the history and physical and performed a pertinent physical examination on my patient. No changes have occurred unless specified. Time Spent With Patient Time: Total time managing care of this patient today ____ minutes.
[2022-12-31 11:51] VITALS: BMI 32.4
[2022-12-31 11:58] LABS: UPreg QC Valid YES; Urine Pregnancy NEGATIVE (NEGATIVE)
[2022-12-31 12:19] VITALS: BP 121/67; PULSE 63; RESP 18; TEMP 36.6; O2SAT 98
[2022-12-31 12:41] LABS: Amphetamine Screen Urine Not Detected (Not Detect); Barbiturates, Urine Not Detected (Not Detect); Benzodiazepines Screen Urine Not Detected (Not Detect); Cannabinoid Screen Urine Not Detected (Not Detect); Cocaine Screen Urine POSITIVE (Not Detect); Fentanyl, urine POSITIVE (Not Detect); Opiate Screen Urine POSITIVE (Not Detect); Phencyclidine Screen Urine Not Detected (Not Detect)
== END ==
PROVIDERS: Anesthesiology; Nurse Practitioner; PCP Family Medicine; Visit Provider Internal Medicine Gastroenterology
DX: R10.84 Generalized abdominal pain (principal); Z53.09 Procedure and treatment not carried out because of other contraindication; R82.5 Elevated urine levels of drugs, medicaments and biological substances; R11.0 Nausea
CPT/HCPCS: 80307; 81025

== ENCOUNTER 2023-02-16 16:06 | Emergency (ER) | payer OTHER, SELFPAY ==
--- NOTE | ~2023-02-16 | XR_ITS ---
EXAMINATION: XR CHEST CLINICAL INFORMATION: Chest pain. COMPARISON: CT chest 06/03/2019. Chest radiograph 06/02/2019. TECHNIQUE: Frontal view of the chest was obtained. FINDINGS: No significant abnormality is noted involving the heart, lungs, mediastinum, bony thorax or soft tissues. XR/XR chest 1V IMPRESSION: Unremarkable examination.
--- NOTE | 2023-02-16 16:12 | ECG_ITS ---
Test Reason : PALPITATIONS Blood Pressure : / mmHG Vent. Rate : 074 BPM Atrial Rate : 074 BPM P-R Int : 134 ms QRS Dur : 086 ms QT Int : 424 ms P-R-T Axes : 029 -12 015 degrees QTc Int : 470 ms Normal sinus rhythm Normal ECG When compared with ECG of 03-JUN-2019 01:59, decrease in ventricular rate Referred By: Jeniffer Dixon Electronically Signed By:MARYAN FRIAS
[2023-02-16 16:14] VITALS: BP 141/85; PULSE 83; RESP 18; TEMP 36.7; O2SAT 98; BMI 33.9
--- NOTE | 2023-02-16 16:14 | ED_ITS ---
HPI - General Adult General Chief complaint: General Medical Stated complaint: head pressure, palpitaions, back pain Time Seen by Provider: 02/16/23 19:09 Source: patient Mode of arrival: ambulatory Limitations: no limitations History of Present Illness HPI narrative: 42-year-old female who presents emergency department for evaluation of multiple complaints. The patient states that she has not been feeling well for several months. She states she has been feeling dizzy on off. She states she has been experiencing chest tightness, palpitations, headache fatigue. Patient states she stopped her cholesterol medicine several months ago. She states that over that time she has gained 45 lb. She states that on 02/13/2023 (3 days prior to evaluation) she developed chest tightness. The tightness came on at rest. She states that lasted several hours. She called an ambulance and paramedics arrived on the scene and told that her systolic blood pressure was 190. She states that her blood pressure is usually low. Patient states that she has been under increased stress secondary to her relationship with her boyfriend and other social stressors. She states she has a history of anxiety is taking Klonopin but is not on any other medications for depression or anxiety. She denied fever, chills, rhinorrhea, sore throat, cough, nausea, vomiting, diarrhea, abdominal pain. Related Data Previous Rx's Medication Instructions Recorded duloxetine 30 mg capsule,delayed 30 mg PO BID 30 days #60 caps 10/26/21 release sennosides 8.6 mg-docusate sodium 1 tab-cap PO BEDTIME 30 days #30 01/21/22 50 mg tablet (Laxative Stool tabs Softener With Senna) lidocaine HCl 2 % mucosal solution 1 appl mucous membrane TID PRN 05/22/22 (Lidocaine Viscous) pain #100 mL omeprazole 20 mg capsule,delayed 20 mg PO BID 90 days #180 caps 07/24/22 release bisacodyl 5 mg tablet,delayed 10 mg PO ONCE colon prep 3 days #6 12/16/22 release (Dulcolax (bisacodyl)) tabs polyethylene glycol 3350 17 17 g PO DAILY colon prep 1 day 12/16/22 gram/dose oral powder (Miralax) #238 grams clonidine HCl 0.1 mg tablet 0.1 mg PO BID PRN for anxiety #60 02/07/23 tabs Allergies Allergy/AdvReac Type Severity Reaction Status Date / Time naproxen [From NAPROSYN] Allergy Intermediate PALPITATION Verified 12/28/22 12:12 S trazodone [TRAZODONE] Allergy Unknown UNKNOWN, Verified 12/28/22 12:12 palpitations Review of Systems Review of Systems: Yes all other systems are reviewed and are negative [facility] Past Medical History [facility] Narrative: Past medical history: Hyperlipidemia, hepatitis-C, HIV, anxiety. Medical History Asthma Breast cancer Fibromyalgia History of hepatitis C History of heroin abuse HIV positive Kidney stones Surgical History History of lumpectomy Family History Family History Father Thrombocytopenia Mother HTN (hypertension) CVD (cardiovascular disease) CHF (congestive heart failure) Maternal Grandfather CVD (cardiovascular disease) S/P triple vessel bypass Sister No problems noted. Sister No problems noted. Daughter No problems noted. Daughter No problems noted. Daughter No problems noted. Social History Social History Housing: Apartment Alcohol intake: never Patient Tobacco Use Status: Current everyday Tobacco user Cigarettes Per Day: 2 e-Cigarette/Vaping Use: Never Used Second Hand Smoke Exposure: Yes Advance Directives: No Advance Directives Information Provided: Yes service: No Current occupational status: unemployed Current occupational exposures/hazards: No Cognitive needs: No Hearing needs: No Vision needs: No Physical Exam ED Vital Signs: Vital Signs - 24 hr 02/16/23 16:14 02/16/23 19:06 02/16/23 19:07 Temperature 98.1 F Pulse Rate 83 67 80 Respiratory Rate 18 Blood Pressure 141/85 H 134/66 127/73 Pulse Oximetry 98 Oxygen Delivery Method Room Air 02/16/23 19:08 Temperature Pulse Rate 74 Respiratory Rate Blood Pressure 150/88 H Pulse Oximetry Oxygen Delivery Method BMI result Body Mass Index 33.9 Const Other: Awake, alert, female patient, pleasant cooperative, does not appear to be in distress, she became very tearful when she described her social stressors HENAK Head: Yes normal to inspection, Yes normocephalic and Yes atraumatic Ears: external ears normal General nose exam: Normal external nose present Face and sinus: Yes normal facial exam Mouth: Normal oral and palatal mucosa present Throat: Yes posterior oropharynx normal Eyes General: appearance normal, both eyes and all related structures Pupils: Equal, round and reactive pupils present Neck Neck: Yes normal visual inspection, Yes no lymphadenopathy, Yes trachea midline and Yes supple Chest Chest palpation & inspection: normal inspection of the chest and normal palpation of entire chest wall Resp Effort & Inspection: normal respiratory effort and able to speak in complete sentences Auscultation: clear to auscultation bilaterally Cardio Rate: regular rate Rhythm: regular rhythm Heart sounds: S1 normal heart sound present, S2 normal heart sound present and no murmurs GI Inspection: Yes normal to inspection Palpation (GI): Soft to palpation, nontender and no guarding Auscultation: normal bowel sounds General: Yes no CVA tenderness Back/Spine/Pelvis Back: no CVA tenderness Skin General skin exam: no rashes or lesions noted Neuro Cranial nerves: Yes CN's II-XII intact bilaterally and Yes Equal, round and reactive pupils present Cognition (Neuro): normal cognition Motor exam (neuro): 5/5 motor strength present throughout Extrem General: Yes normal to inspection Psych Appearance: grossly normal Speech and movement: Normal speech and movement present Affect: normal affect Attitude: cooperative Thought process: Normal thought process present Thought content: Normal thought content present Course Course Course Narrative: RME: 42yo F w/PMHx HIV, asthma, fibromyalgia, Hep C, c/o generalized fatigue, weakness, BRENNAN, chest pressure, palpitations, back pain & lightheadedness x weeks. EKG, Labs, UA ordered Full HPI, ROS and PE to be performed by primary ED provider. Medical Decision Making Medical Decision Making MDM Narrative: 42-year-old female who presents emergency department for evaluation of multiple complaints including lightheadedness, dizziness, fatigue, palpitations, chest pain. Patient's vital signs did reveal an elevated blood pressure of 141/85 otherwise were unremarkable. Patient's physical examination was unremarkable. Following tests were ordered on the patient: CBC, BMP, liver panel, lipase, troponin, urinalysis, TSH with reflex T4, chest x-ray, EKG 1941: Patient's laboratory evaluation was unremarkable. Patient's chest x-ray was normal. Patient's 12 EKG was normal. At this time, I suspect the patient's symptoms are more consistent with depression anxiety and I did discuss this with her. She was advised to follow- up with her PCP to discuss medications and with [facility] medications verses therapy to help with her social stressors, anxiety and depression Differential Diagnosis Differential diagnosis includes but is not limited to myocardial infarction, myocardial ischemia, anxiety, palpitations, anemia, electrolyte abnormalities, hypothyroidism Admission/Observation Consideration of admission/observation: Escalation of care including admission/ observation considered Lab Data MDM Lab Attestation statement: I reviewed the patient's lab results. My interpretation patient's laboratory evaluation is as follows: Mild anemia with an H&H of 11 and 35, normal BMP, normal LFTs. High sensitive troponin I was below detectable limits, COVID-19 was negative, TSH was normal. 02/16/23 16:40 02/16/23 16:40 Labs: Lab Results 02/16/23 02/16/23 02/16/23 Range/Units 15:26 16:40 16:40 WBC 7.9 (4.8-10.8) X10*3/uL RBC 3.81 L (4.20-5.50) X10*6/uL Hgb 11.5 L (12.0-16.0) g/dl Hct 35.9 L (37.0-47.0) % MCV 94.2 (80.0-98.0) fL MCH 30.2 (27.0-33.0) pg MCHC 32.0 (31.0-35.0) g/dl RDW 13.8 (11.0-16.0) % Plt Count 238 (160-400) X10*3/uL MPV 9.3 L (9.4-12.3) fL Immature Gran % (Auto) 0.3 (0.0-0.4) % Neut % (Auto) 56.9 (45-73) % Lymph % (Auto) 35.8 (20-40) % Butts % (Auto) 4.7 (2-11) % Eos % (Auto) 2.0 (0-4) % Baso % (Auto) 0.3 (0-2) % Lymph # (Auto) 2.8 (1.2-4.9) X10*3/uL Butts # (Auto) 0.4 (0.1-1.2) X10*3/uL Eos # (Auto) 0.2 (0.0-0.4) X10*3/uL Baso # (Auto) 0.0 (0.0-0.2) X10*3/uL Abs Immat Gran (auto) 0.02 (0.00-0.03) X10*3/uL Absolute Neuts (auto) 4.5 (2.0-8.3) x10*3/uL Absolute Nucleated RBC 0.000 (0.0-0.012) X10*3/uL Nucleated RBC % (auto) 0.0 (0.0-0.2) /100WBC Sodium 142 (135-145) mmol/L Potassium 3.8 (3.3-5.1) mmol/L Chloride 108 (96-108) mmol/L Carbon Dioxide 27 (22-29) mmol/L Anion Gap 11 L (12-20) BUN 17 H (9-16) mg/dL Creatinine 0.77 (0.5-1.4) mg/dL Estim Creat Clear Calc 97.2 Estimated GFR > 60 Random Glucose 102 (60-115) mg/dL Calcium 9.6 (8.4-10.2) mg/dL Magnesium 2.0 (1.6-2.6) mg/dL Total Bilirubin 0.3 (0.0-1.0) mg/dL Direct Bilirubin 0.1 (0.0-0.5) mg/dL AST 28 (5-31) U/L ALT 19 (0-31) U/L Alkaline Phosphatase 95 (39-117) U/L Troponin I High Sens < 2.7 (<3.5-17.0) ng/L Total Protein 8.6 H (6.5-8.0) g/dL Albumin 4.0 (3.5-5.0) g/dL Lipase 10 (8-78) U/L TSH 1.90 (0.32-4.0) uIU/mL COVID-19 (TIFFANIE) (Negative) COVID-19 Clin Com 02/16/23 Range/Units 16:40 WBC (4.8-10.8) X10*3/uL RBC (4.20-5.50) X10*6/uL Hgb (12.0-16.0) g/dl Hct (37.0-47.0) % MCV (80.0-98.0) fL MCH (27.0-33.0) pg MCHC (31.0-35.0) g/dl RDW (11.0-16.0) % Plt Count (160-400) X10*3/uL MPV (9.4-12.3) fL Immature Gran % (Auto) (0.0-0.4) % Neut % (Auto) (45-73) % Lymph % (Auto) (20-40) % Butts % (Auto) (2-11) % Eos % (Auto) (0-4) % Baso % (Auto) (0-2) % Lymph # (Auto) (1.2-4.9) X10*3/uL Butts # (Auto) (0.1-1.2) X10*3/uL Eos # (Auto) (0.0-0.4) X10*3/uL Baso # (Auto) (0.0-0.2) X10*3/uL Abs Immat Gran (auto) (0.00-0.03) X10*3/uL Absolute Neuts (auto) (2.0-8.3) x10*3/uL Absolute Nucleated RBC (0.0-0.012) X10*3/uL Nucleated RBC % (auto) (0.0-0.2) /100WBC Sodium (135-145) mmol/L Potassium (3.3-5.1) mmol/L Chloride (96-108) mmol/L Carbon Dioxide (22-29) mmol/L Anion Gap (12-20) BUN (9-16) mg/dL Creatinine (0.5-1.4) mg/dL Estim Creat Clear Calc Estimated GFR Random Glucose (60-115) mg/dL Calcium (8.4-10.2) mg/dL Magnesium (1.6-2.6) mg/dL Total Bilirubin (0.0-1.0) mg/dL Direct Bilirubin (0.0-0.5) mg/dL AST (5-31) U/L ALT (0-31) U/L Alkaline Phosphatase (39-117) U/L Troponin I High Sens (<3.5-17.0) ng/L Total Protein (6.5-8.0) g/dL Albumin (3.5-5.0) g/dL Lipase (8-78) U/L TSH (0.32-4.0) uIU/mL COVID-19 (TIFFANIE) Negative (Negative) COVID-19 Clin Com See Note Independent Interpretation I performed an independent interpretation of an: EKG and Plain X-Ray Interpretation: My independent interpretation patient's 12 EKG done at 16:30 hours is as follows: Normal sinus rhythm rate of 74, normal MA interval, QRS duration QTC interval, no ST segment elevation, no ST segment depression, no T-wave abnormalities, no PVCs, no PACs, this is a normal EKG. My independent interpretation of the patient's chest x-ray is as follows: No acute disease Radiology Impression Discussion of test interpretation with radiology: I have reviewed the radiologist's reading. Radiologist Impression: XR chest 1V IMPRESSION: Unremarkable examination. Dictated By:Shama Champion Discharge Plan Discharge Clinical Impression: Chest pain, Palpitation, Fatigue Patient Disposition: Home, Self-Care Additional Instructions: Your laboratory evaluation revealed mild anemia but I do not think that this is causing your symptoms. Your basic metabolic panel and liver tests were normal which is reassuring. Your troponin (a marker of heart damage) was below detectable limits. Your thyroid test was normal. Your chest x-ray was normal. Your 12 EKG was normal At this time, I suspect that your symptoms may be related to depression anxiety. You should follow-up with your doctor for further evaluation and possible treatment for depression and anxiety. I also want you to follow-up with [facility], they can help you with counseling and possible medications to help with your depression and anxiety if your primary care doctor cannot prescribe these medicines. [employer] [facility] ([facility]) phone number is Follow-up with your doctor in 2 days. Please return to the emergency department if your symptoms get worse or if you develop any symptoms that are concerning to you. Prescriptions: No Action duloxetine 30 mg capsule,delayed release(DR/EC) 30 mg PO BID 30 Days Qty: 60 1RF omeprazole 20 mg capsule,delayed release(DR/EC) 20 mg PO BID 90 Days Qty: 180 0RF bisacodyl [Dulcolax (bisacodyl)] 5 mg tablet,delayed release (DR/EC) 10 mg PO ONCE 3 Days Qty: 6 0RF Rx Instructions: Take 2 tablets at 12 pm starting 3 days before colonoscopy polyethylene glycol 3350 [Miralax] 17 gram/dose powder 17 g PO DAILY 1 Days Qty: 238 0RF Rx Instructions: Mix Miralax with 64 oz(8 cups) of Crystal light. Take 2 tablets of Dulcolax qt 12 pm. Wait to have your 1st bowel movement, then begin drinking Miralax. Drink a glass of Miralax every 10-15 minutes until you are finished. You will drink at least another 4 cups of clear liquid of your choice over the next 2 hours. Please drink as many clear liquids as possible You may have clear liquids up to four hours before your procedure clonidine HCl 0.1 mg tablet 0.1 mg PO BID PRN (Reason: for anxiety) Qty: 60 0RF lidocaine HCl [Lidocaine Viscous] 2 % solution 1 appl mucous membrane TID PRN (Reason: pain) Qty: 100 0RF sennosides-docusate sodium [Lax Stool Softener With Senna] 8.6-50 mg tablet 1 tab-cap PO BEDTIME 30 Days Qty: 30 3RF
[2023-02-16 16:47] LABS: MANUAL DIFF FLAG NO
[2023-02-16 16:49] LABS: Basophils Percent Auto 0.3 % (0-2); Eosinophils Absolute Auto 0.2 X10*3/uL (0.0-0.4); Hematocrit 35.9 % (37.0-47.0); Hemoglobin 11.5 g/dl (12.0-16.0); Imm Gran Abs Auto 0.02 X10*3/uL (0.00-0.03); Imm Gran Pct Auto 0.3 % (0.0-0.4); Lymphocytes Absolute Auto 2.8 X10*3/uL (1.2-4.9); Lymphocytes Percent Auto 35.8 % (20-40); Mean Corpuscular Hemoglobin 30.2 pg (27.0-33.0); Mean Corpuscular Volume 94.2 fL (80.0-98.0); Mean Platelet Volume 9.3 fL (9.4-12.3); Monocytes Absolute Auto 0.4 X10*3/uL (0.1-1.2); Monocytes Percent Auto 4.7 % (2-11); Neutrophils Absolute Auto 4.5 x10*3/uL (2.0-8.3); Neutrophils Percent Auto 56.9 % (45-73); Platelet Count 238 X10*3/uL (160-400); Red Blood Count 3.81 X10*6/uL (4.20-5.50); Red Cell Distribution Width 13.8 % (11.0-16.0); White Blood Count 7.9 X10*3/uL (4.8-10.8)
[2023-02-16 17:06] LABS: COVID-19 Test Negative (Negative); IDNOW Serial# 6674DD1D
[2023-02-16 17:11] LABS: Troponin-I High Sensitivity < 2.7 ng/L (<3.5-17.0)
[2023-02-16 17:11] LABS: Alanine Aminotransferase 19 U/L (0-31); Alkaline Phosphatase 95 U/L (39-117); Anion Gap 11 (12-20); Aspartate Amino Transferase 28 U/L (5-31); Bilirubin Direct 0.1 mg/dL (0.0-0.5); Bilirubin Total 0.3 mg/dL (0.0-1.0); Blood Urea Nitrogen 17 mg/dL (9-16); Calcium 9.6 mg/dL (8.4-10.2); Carbon Dioxide 27 mmol/L (22-29); Chloride 108 mmol/L (96-108); Creatinine Clr Calc Pharmacy 97.2; Estimated Glomerular Filt Rate > 60; Glucose Random 102 mg/dL (60-115); Lipase 10 U/L (8-78); Potassium 3.8 mmol/L (3.3-5.1); Sodium 142 mmol/L (135-145); Total Protein 8.6 g/dL (6.5-8.0)
[2023-02-16 19:06] VITALS: BP 134/66; PULSE 67
[2023-02-16 19:07] VITALS: BP 127/73; PULSE 80
[2023-02-16 19:08] VITALS: BP 150/88; PULSE 74
--- NOTE | 2023-02-16 19:09 | PC.NURSE ---
Orthostatic VS negative at this time, MD Houser aware
--- NOTE | 2023-02-16 19:48 | PC.NURSE ---
pt a&ox4, hypertensive, other vss. pt referred from PCP due to HTN and h/a. pt endorses episodes of lightheadedness, typically has low blood pressures. urine sample obtained. no new orders at this time.
[2023-02-16 19:53] LABS: Appearance Urine Cloudy; Color Urine Yellow; Glucose Urine UA Negative (Negative); Leukocyte Esterase Urine Negative (Negative); Nitrite Urine Negative (Negative); Urine Blood Negative (Negative); Urine Ketones Negative (Negative); Urine Protein Negative (Neg-Trace)
== END 2023-02-16 19:55 | disposition home or self-care (01) ==
PROVIDERS: Physician Assistant; Emergency Provider Emergency Medicine Emergency Medical Services; PCP Family Medicine
DX: R07.9 Chest pain, unspecified (principal); R00.2 Palpitations; R53.83 Other fatigue; Z20.822 Contact with and (suspected) exposure to COVID-19; F41.9 Anxiety disorder, unspecified; F17.210 Nicotine dependence, cigarettes, uncomplicated; Z79.899 Other long term (current) drug therapy
CPT/HCPCS: 71045; 80048; 80076; 81003; 83690; 83735; 84443; 84484; 85025; 87635; 93005; 99283; 99284

== ENCOUNTER 2023-07-11 15:44 | Outpatient (AMB) | payer OTHER, SELFPAY ==
[2023-07-11 16:33] VITALS: BP 130/80; PULSE 77; TEMP 36.9; O2SAT 98; BMI 33.7
--- NOTE | 2023-07-11 16:33 | AM.OFFWIN_ITS ---
Intake Vital Signs 07/11/23 16:33 Height 5 ft 3 in Weight 190 lb BMI 33.7 BP 130/80 Blood Pressure Location Rt brachial Position Sitting Pulse 77 Pulse Source Pulse Oximeter Temp 98.5 F Temp Source Temporal Artery Scan Pulse Oximetry (%) 98 Oxygen Delivery Method Room Air Intake Visit Reasons: EP cough congestion fever dizzy [id number] Intake Note: pt is here for c/o cough and congestion Patient Tobacco Use Status: Current everyday Tobacco user Allergies naproxen [From NAPROSYN] Allergy (Intermediate, Verified 07/17/23 17:25) PALPITATIONS trazodone [TRAZODONE] Allergy (Unknown, Verified 07/17/23 17:25) UNKNOWN, palpitations Medication List - Last Reconciled 07/17/23 by Tomasz Del Angel MD azithromycin take 500 mg today (day 1), then 250 mg for 4 days (days 2-5) PO bisacodyl (Dulcolax (bisacodyl)) 10 mg (2 x 5 mg) PO ONCE 3 days clonidine HCl 0.1 mg PO BID PRN duloxetine 30 mg PO BID 30 days lidocaine HCl 2% (Lidocaine Viscous) 1 appl mucous membrane TID PRN omeprazole 20 mg PO BID polyethylene glycol 3350 (Miralax) 17 grams PO DAILY 1 day sennosides-docusate sodium 8.6-50 mg (Laxative Stool Softener With Senna) 1 tab- cap PO BEDTIME 30 days Do you need a note to return to daycare/school/sports/work: Yes HPI EP cough congestion fever dizzy [id number] HPI Details Patient presents for a sick visit. Reporting symptoms of sinus congestion, sore throat and difficulty swallowing. Low-grade fever. No family member is sick. No recent travel. Patient reports symptoms of malaise and fatigue. [facility] Medical History Kidney stones History of hepatitis C History of heroin abuse HIV positive Fibromyalgia Breast cancer Asthma Surgical History History of lumpectomy Family History Father Thrombocytopenia Mother HTN (hypertension) CVD (cardiovascular disease) CHF (congestive heart failure) Maternal Grandfather CVD (cardiovascular disease) S/P triple vessel bypass Sister No problems noted. Sister No problems noted. Daughter No problems noted. Daughter No problems noted. Daughter No problems noted. Social History Housing: Apartment Alcohol intake: never Patient Tobacco Use Status: Current everyday Tobacco user Cigarettes Per Day: 2 e-Cigarette/Vaping Use: Never Used Second Hand Smoke Exposure: Yes service: No Current occupational status: unemployed Current occupational exposures/hazards: No Cognitive needs: No Hearing needs: No Vision needs: No Physical Exam Vital Signs: Last Vital Signs Temp 98.5 F 07/11/23 16:33 Pulse 77 07/11/23 16:33 BP 130/80 07/11/23 16:33 Pulse Ox 98 07/11/23 16:33 Oxygen Delivery Method Room Air 07/11/23 16:33 BMI result Body Mass Index 33.7 Const General: cooperative and healthy appearing Nutritional Appearance: well nourished Orientation/consciousness: patient oriented x3 Limitations: no limitations HEENT Head: Yes normal to inspection Eyes General: appearance normal, both eyes and all related structures Neck Neck: Yes normal visual inspection Chest Chest palpation & inspection: normal palpation of entire chest wall Resp Effort & Inspection: normal respiratory effort Neuro General: patient oriented x3 Assessment & Plan Assessment & Plan (1) Upper respiratory tract infection: Code(s): J06.9 - Acute upper respiratory infection, unspecified Plan: Antibiotics ordered. Increase fluid intake. Tylenol for aches and pains. If symptoms worsen, follow-up here for a recheck. Medications: New azithromycin take 500 mg today (day 1), then 250 mg for 4 days (days 2-5) PO 6 tabs 0RF Coding Level of Care Code Est Pt Level 3 (96634) Diagnoses Upper respiratory tract infection J06.9
== END 2023-07-11 17:28 | disposition home or self-care (01) ==
PROVIDERS: PCP Family Medicine; Visit Provider Internal Medicine
DX: J06.9 Acute upper respiratory infection, unspecified (principal)
CPT/HCPCS: 99213

== ENCOUNTER 2024-02-24 11:00 | Outpatient (AMB) | payer OTHER, SELFPAY ==
--- NOTE | 2024-02-24 11:14 | A.OFFPC_ITS ---
Intake Visit Reasons: est/ possible uti Allergies naproxen [From NAPROSYN] Allergy (Intermediate, Verified 07/17/23 17:25) PALPITATIONS trazodone [TRAZODONE] Allergy (Unknown, Verified 07/17/23 17:25) UNKNOWN, palpitations Tobacco use date assessed: 11/13/21 [facility] Medical History Kidney stones History of hepatitis C History of heroin abuse HIV positive Fibromyalgia Breast cancer Asthma Surgical History History of lumpectomy Family History Father Thrombocytopenia Mother HTN (hypertension) CVD (cardiovascular disease) CHF (congestive heart failure) Maternal Grandfather CVD (cardiovascular disease) S/P triple vessel bypass Sister No problems noted. Sister No problems noted. Daughter No problems noted. Daughter No problems noted. Daughter No problems noted. Social History Housing: Apartment Alcohol intake: never Patient Tobacco Use Status: Current everyday Tobacco user Cigarettes Per Day: 2 e-Cigarette/Vaping Use: Never Used Second Hand Smoke Exposure: Yes service: No Current occupational status: unemployed Current occupational exposures/hazards: No Cognitive needs: No Hearing needs: No Vision needs: No Questionnaire Thrive Questionnaire Date Thrive assessed: 09/29/21 HUBER-7 AMB Questionnaire HUBER-7 Date HUBER - 7 assessed: 09/29/21 Source: Developed by Drs. Chester Ricci, Alicia Chen, Irving Atkinson and colleagues, with an educational alex from [employer]. Physical exam (Primary Care) Tobacco/Smoking Status: Tobacco use Status Tobacco use date assessed 11/13/21 01/21/22 12:54 Patient Tobacco Use Status Current everyday Tobacco 07/11/23 16:34 e-Cigarette/Vaping Use Never Used 01/21/22 12:54 Thrive Assessment: Date of Thrive Assessment Date Thrive assessed 09/29/21 01/21/22 12:54 Coding
--- NOTE | 2024-02-24 11:21 | MHC.OFFWIV ---
Intake Vital Signs 02/24/24 11:23 Height 5 ft 3 in Weight 193 lb BMI 34.2 BP 108/64 Blood Pressure Location Rt brachial Position Sitting Respiration 14 Pulse 72 Pulse Source Pulse Oximeter Temp 98.3 F Temp Source Oral Pulse Oximetry (%) 96 Oxygen Delivery Method Room Air Intake Visit Reasons: est/ possible uti Intake Note: Frequency, urinary incontinence, painful urination, painful during intercourse. Insect bite on right leg Patient Tobacco Use Status: Current everyday Tobacco user Allergies naproxen [From NAPROSYN] Allergy (Intermediate, Verified 02/24/24 11:34) PALPITATIONS trazodone [TRAZODONE] Allergy (Unknown, Verified 02/24/24 11:34) UNKNOWN, palpitations Medication List - Last Reconciled 02/24/24 by TREVOR ValdezP- bisacodyl (Dulcolax (bisacodyl)) 10 mg (2 x 5 mg) PO ONCE 3 days clonidine HCl 0.1 mg PO BID PRN 30 days lidocaine HCl 2% (Lidocaine Viscous) 1 appl mucous membrane TID PRN omeprazole 20 mg PO BID polyethylene glycol 3350 (Miralax) 17 grams PO DAILY 1 day sennosides-docusate sodium 8.6-50 mg (Laxative Stool Softener With Senna) 1 tab-cap PO BEDTIME 30 days HPI HPI Comments History of Present Illness Details Here today as a walk-in visit with several complaints. The 1st is that of dysuria and urinary frequency. This has been present on and off for the last 6 months. Reports she has not had medical evaluation until now. Reports that her symptoms only last a few days and then go away on their own. She reports that her last menstrual period was 1 month ago when there was no chance of . She denies any vaginal discharge, abdominal pain, fever. She does endorse a history of renal stones however does not give any history to support this as a differential during today's exam. She also reports that she got bit by an insect on the right thigh yesterday while at work. The areas red and itchy. She reports that she did not have to remove the bug. It was not a tick. Really unsure what it was but is sure that it was a bug. She said it hurts when the area is touched. She is up-to-date on her Tdap which was administered in 2017. She has not tried any at home remedies. And finally she complains of white spots on her lower extremities without any other associated symptoms. Exam MMM speaking in full sentences no CVAT or SP tenderness urine dip results reviewed and negative Right anterior thigh is an erythematous plaque mildy warm to touch with what looks like a bite in the center, without centralized clearing. At 12 oclock is ecchymosis. The area is blanchable. Tinea versicolor to bilat legs plan: Recommend fu with ARCHITECTURE CONSULTANT as urine sample today is normal and not indicative of UTI Given short course of prednisone to help with a localized reaction from the insect bite on right anterior thigh. No need for antibiotics at this time. Educated on reasons to return to the office. Encouraged to use [id number] Selsun blue shampoo daily to help resolve this rash.. [facility] Medical History Kidney stones History of hepatitis C History of heroin abuse HIV positive Fibromyalgia Breast cancer Asthma Surgical History History of lumpectomy Family History Father Thrombocytopenia Mother HTN (hypertension) CVD (cardiovascular disease) CHF (congestive heart failure) Maternal Grandfather CVD (cardiovascular disease) S/P triple vessel bypass Sister No problems noted. Sister No problems noted. Daughter No problems noted. Daughter No problems noted. Daughter No problems noted. Social History Housing: Apartment Alcohol intake: never Patient Tobacco Use Status: Current everyday Tobacco user Cigarettes Per Day: 2 e-Cigarette/Vaping Use: Never Used Second Hand Smoke Exposure: Yes service: No Current occupational status: unemployed Current occupational exposures/hazards: No Cognitive needs: No Hearing needs: No Vision needs: No Physical Exam Vital Signs: Last Vital Signs Temp 98.3 F 02/24/24 11:23 Pulse 72 02/24/24 11:23 Resp 14 02/24/24 11:23 BP 108/64 02/24/24 11:23 Pulse Ox 96 02/24/24 11:23 Oxygen Delivery Method Room Air 02/24/24 11:23 BMI result Body Mass Index 34.2 Results AMB Urinalysis Dipstick UR Leukocytes Negative Last Edit by Sonia Russell, KEMAR on 02/24/24 11:29 UR Nitrite Negative Last Edit by Sonia Russell, KEMAR on 02/24/24 11:29 UR Urobilinogen Normal Last Edit by oSnia Russell, KEMAR on 02/24/24 11:29 UR Protein Negative Last Edit by Sonia Russell, FULL ROLL INSPECTOR on 02/24/24 11:29 UR Ph 6.0 Last Edit by Sonia Russell, FULL ROLL INSPECTOR on 02/24/24 11:29 UR Blood Negative Last Edit by Sonia Russell, FULL ROLL INSPECTOR on 02/24/24 11:29 UR Specific Dawson 1.025 Last Edit by Sonia Russell, KEMAR on 02/24/24 11:29 UR Ketone Negative Last Edit by Sonia Russell, FULL ROLL INSPECTOR on 02/24/24 11:29 UR Bilirubin Negative Last Edit by oSnia Russell, KEMAR on 02/24/24 11:29 UR Glucose Negative Last Edit by Sonia Russell, KEMAR on 02/24/24 11:29 Results Reviewed Results Reviewed: Laboratory Last Values Urine pH (Clinic) 6.0 02/24/24 11:27 Specific Dawson (Clinic) 1.025 02/24/24 11:27 Ur Protein (Clinic) Negative 02/24/24 11:27 Ur Ketones (Clinic) Negative 02/24/24 11:27 Urine Blood (Clinic) Negative 02/24/24 11:27 Urine Nitrite Negative 02/24/24 11:27 Urine Bilirubin (Clinic) Negative 02/24/24 11:27 Urobilinogen (Clinic) Normal 02/24/24 11:27 Leukocyte Esterase (Clinic) Negative 02/24/24 11:27 Urine Glucose (Clinic) Negative 02/24/24 11:27 Assessment & Plan Assessment & Plan (1) Tinea versicolor: Code(s): B36.0 - Pityriasis versicolor (2) Dysuria: Code(s): R30.0 - Dysuria Plan: . (3) Insect bite: Code(s): W57.XXXA - Bitten or stung by nonvenomous insect and other nonvenomous arthropods, initial encounter Qualifiers: Encounter type: initial encounter Site of insect bite: thigh Laterality: right Qualified Code(s): S70.361A - Insect bite (nonvenomous), right thigh, initial encounter; W57.XXXA - Bitten or stung by nonvenomous insect and other nonvenomous arthropods, initial encounter Plan . Orders: Orders AMB Urinalysis Dipstick Today R30.9 - Painful micturition, unspecified Medications: New prednisone 20 mg PO DAILY 5 tabs 0RF Coding Level of Care Code Est Pt Level 5 (75896) Diagnoses Tinea versicolor B36.0 Dysuria R30.0 Insect bite of right thigh, initial encounter S70.361A; W57.XXXA Encounter type: initial encounter Site of insect bite: thigh Laterality: right
[2024-02-24 11:23] VITALS: BP 108/64; PULSE 72; RESP 14; TEMP 36.8; O2SAT 96; BMI 34.2
== END 2024-02-24 12:24 | disposition home or self-care (01) ==
PROVIDERS: PCP Family Medicine; Visit Provider Nurse Practitioner Family
DX: B36.0 Pityriasis versicolor (principal); R30.0 Dysuria; S70.361A Insect bite (nonvenomous), right thigh, initial encounter; W57.XXXA Bitten or stung by nonvenomous insect and other nonvenomous arthropods, initial encounter; R30.9 Painful micturition, unspecified
CPT/HCPCS: 81002; 99214

== ENCOUNTER 2024-02-24 15:53 | Outpatient (REF) | payer OTHER, SELFPAY ==
[2024-02-24 18:22] LABS: Appearance Urine Clear; Color Urine Yellow; Glucose Urine UA Negative (Negative); Leukocyte Esterase Urine Negative (Negative); Nitrite Urine Negative (Negative); PH 6.5 (5.0-9.0); Specific Gravity - Urine 1.025 (1.005-1.025); Urine Blood Negative (Negative); Urine Ketones Negative (Negative); Urine Protein Negative (Neg-Trace)
== END 2024-02-24 15:54 | disposition home or self-care (01) ==
LOC: HO.LAB 15:53
PROVIDERS: Visit Provider Nurse Practitioner Family
DX: R30.0 Dysuria (principal); R30.9 Painful micturition, unspecified
CPT/HCPCS: 81003

== ENCOUNTER 2024-03-01 01:55 | Emergency (ER) | payer OTHER, SELFPAY ==
--- NOTE | 2024-03-01 | ECG_ITS ---
Test Reason : ABD PAIN Blood Pressure : / mmHG Vent. Rate : 082 BPM Atrial Rate : 082 BPM P-R Int : 138 ms QRS Dur : 090 ms QT Int : 376 ms P-R-T Axes : 000 191 164 degrees QTc Int : 439 ms Normal sinus rhythm Right superior axis deviation Abnormal ECG When compared with ECG of 16-FEB-2023 16:30, QRS axis Shifted left T wave inversion now evident in Lateral leads (changes could be related to lead reversal) Referred By: Generic ED Physician Electronically Signed By:MARYAN FRIAS
[2024-03-01 02:07] VITALS: PULSE 84; O2SAT 98
[2024-03-01 02:26] VITALS: BP 124/60; PULSE 73; RESP 25; TEMP 36.8; O2SAT 100; BMI 31.6
[2024-03-01 02:49] LABS: MANUAL DIFF FLAG NO
[2024-03-01 02:50] LABS: Basophils Percent Auto 0.2 % (0-2); Eosinophils Percent Auto 0.3 % (0-4); Hematocrit 39.3 % (37.0-47.0); Hemoglobin 13.2 g/dl (12.0-16.0); Imm Gran Abs Auto 0.01 X10*3/uL (0.00-0.03); Imm Gran Pct Auto 0.1 % (0.0-0.4); Lymphocytes Absolute Auto 1.8 X10*3/uL (1.2-4.9); Lymphocytes Percent Auto 20.1 % (20-40); Mean Corpuscular HGB Conc 33.6 g/dl (31.0-35.0); Mean Corpuscular Hemoglobin 31.6 pg (27.0-33.0); Mean Platelet Volume 9.4 fL (9.4-12.3); Monocytes Absolute Auto 0.3 X10*3/uL (0.1-1.2); Monocytes Percent Auto 3.6 % (2-11); Neutrophils Absolute Auto 6.6 x10*3/uL (2.0-8.3); Neutrophils Percent Auto 75.7 % (45-73); Platelet Count 223 X10*3/uL (160-400); Red Blood Count 4.18 X10*6/uL (4.20-5.50); Red Cell Distribution Width 13.2 % (11.0-16.0); White Blood Count 8.7 X10*3/uL (4.8-10.8)
[2024-03-01 03:08] LABS: Alanine Aminotransferase 15 U/L (0-31); Albumin Level 4.4 g/dL (3.5-5.0); Alkaline Phosphatase 77 U/L (39-117); Anion Gap 16 (12-20); Aspartate Amino Transferase 24 U/L (5-31); Bilirubin Total 0.4 mg/dL (0.0-1.0); Blood Urea Nitrogen 24 mg/dL (9-16); Calcium 9.5 mg/dL (8.4-10.2); Carbon Dioxide 23 mmol/L (22-29); Chloride 107 mmol/L (96-108); Creatinine Clr Calc Pharmacy 80.2; Estimated Glomerular Filt Rate > 60; Glucose Random 134 mg/dL (60-115); Lipase 15 U/L (8-78); Potassium 3.4 mmol/L (3.3-5.1); Sodium 143 mmol/L (135-145); Total Protein 9.2 g/dL (6.5-8.0)
[2024-03-01] MEDS: ondansetron HCL 4 MG/2 ML VIAL IVPUSH (03:32)
--- NOTE | 2024-03-01 04:13 | ED.ABDPAIN ---
HPI - Abdominal Pain General Chief Complaint: Abdominal Pain Stated Complaint: abd pain Time Seen by Provider: 03/01/24 04:04 Source: patient Mode of arrival: ambulatory Limitations: no limitations History of Present Illness ED Provider: Dr. Adelaida Mccarty HPI narrative: Patient comes to the emergency room complaining of nausea and vomiting, no diarrhea. Patient states that she missed her methadone dose in the morning, instead took it at 23:00, started having several episodes of vomiting. Patient denies fever chills, chest pain or shortness of breath, complaining of mild left upper quadrant discomfort, no flank pain. Related Data Previous Rx's ?Medication ?Instructions ?Recorded sennosides 8.6 mg-docusate sodium 1 tab-cap PO BEDTIME 30 days #30 01/21/22 50 mg tablet (Laxative Stool tabs Softener With Senna) lidocaine HCl 2 % mucosal solution 1 appl mucous membrane TID PRN 05/22/22 (Lidocaine Viscous) pain #100 mL bisacodyl 5 mg tablet,delayed 10 mg (2 x 5 mg) PO ONCE colon 12/16/22 release (Dulcolax (bisacodyl)) prep 3 days #6 tabs polyethylene glycol 3350 17 17 g PO DAILY colon prep 1 day 12/16/22 gram/dose oral powder (Miralax) #238 grams omeprazole 20 mg capsule,delayed 20 mg PO BID #180 caps 06/27/23 release clonidine HCl 0.1 mg tablet 0.1 mg PO BID PRN for anxiety 30 02/23/24 days #60 tabs prednisone 20 mg tablet 20 mg PO DAILY #5 tabs 02/24/24 ondansetron 4 mg disintegrating 4 mg PO Q6H PRN nausea and 03/01/24 tablet vomiting #14 tabs Allergies Allergy/AdvReac Type Severity Reaction Status Date / Time naproxen [From NAPROSYN] Allergy Intermediate PALPITATION Verified 03/01/24 02:29 S trazodone [TRAZODONE] Allergy Unknown UNKNOWN, Verified 03/01/24 02:29 palpitations Review of Systems Review of Systems Constitutional : No Weight loss, No Fever, No Chills, No Night Sweats, No Fatigue, No Malaise ENT/Mouth : No Hearing loss, No Ear Pain, No Nasal Congestion, No Sinus Pain, No Hoarseness, No sore throat, No Rhinorrhea, No Swallowing Difficulty Eyes: No Eye Pain, No Swelling, No Redness, No Foreign Body, No Discharge, No Vision Changes Cardiovascular : No Chest Pain, No SOB, No Dyspnea on Exertion, No Orthopnea, No Edema, No Palpitations Respiratory : No Cough, No Sputum, No Wheezing, No Smoke Exposure, No Dyspnea Gastrointestinal : Complaining of nausea, vomiting, no diarrhea, complaining of left upper quadrant discomfort, no epigastric pain or bilateral lower quadrant pain Genitourinary : no irregular bleeding, No Dysuria, No Urinary Frequency, No Hematuria, No Urinary Incontinence, No Urgency, No Flank Pain, No Urinary Flow Changes, No Hesitancy Musculoskeletal : No joint pain, No Myalgias, No Joint Swelling Skin : No Skin Lesions, No rash Neuro : No Weakness, No Numbness, No Paresthesias, No Loss of Consciousness, No Dizziness, No Headache Psych : No Anxiety/Panic, No Depression, No SI/HI/AH/VH, No Social Issues, Heme/Lymph: No Bruising, No Bleeding,No Lymphadenopathy Endocrine : No Polyuria, No Polydipsia, No Temperature Intolerance [facility] Past Medical History Medical History Kidney stones History of hepatitis C History of heroin abuse HIV positive Fibromyalgia Breast cancer Asthma Surgical History History of lumpectomy Family History Family History Father Thrombocytopenia Mother HTN (hypertension) CVD (cardiovascular disease) CHF (congestive heart failure) Maternal Grandfather CVD (cardiovascular disease) S/P triple vessel bypass Sister No problems noted. Sister No problems noted. Daughter No problems noted. Daughter No problems noted. Daughter No problems noted. Social History Social History Housing: Apartment Alcohol intake: never Patient Tobacco Use Status: Current everyday Tobacco user Cigarettes Per Day: 2 Smoked in Last 30 Days: Yes e-Cigarette/Vaping Use: Never Used Second Hand Smoke Exposure: Yes Use of substances other than those prescribed or required for medical reasons: Yes Substance Use Type Other:: Methadone Advance Directives: No Advance Directives Information Provided: Yes Do you have a plan to hurt others: No Plan Patient : No service: No Current occupational status: unemployed Current occupational exposures/hazards: No Cognitive needs: No Hearing needs: No Vision needs: No Physical Exam ED Vital Signs: Vital Signs - 24 hr 03/01/24 02:26 03/01/24 06:07 Temperature 98.2 F 100.0 F Pulse Rate 73 92 Respiratory Rate 25 H 20 Blood Pressure 124/60 124/61 Pulse Oximetry 100 99 Oxygen Delivery Method Room Air BMI result Body Mass Index 31.6 Const Other: Appearance: Alert. Oriented X3. No acute distress. Eyes: Pupils equal, round and reactive to light. ENT: Pharynx normal. Neck: Normal inspection. Neck supple. No lymph nodes noted. No crepitus CVS: Normal heart rate and rhythm. Pulses normal. Normal S1 and S2 Respiratory: No respiratory distress. Breath sounds normal. No Wheezing. No rales Abdomen: Soft and nontender. No rigidity. No distention. Skin: Skin warm and dry. Normal skin color. Normal skin turgor. Extremities: No lower extremity edema. No Lacerations. No Rash Neuro: Oriented X 3. No motor deficit. No sensory deficit. Moving all extremities. No slurred speech. CN 2 through 12 grossly intact Psych: calm, cooperative, normal affect Medical Decision Making Medical Decision Making [facility] Narrative: -my interpretation of labs, normal hematology and chemistry, normal LFTs and lipase -my interpretation of EKG: Normal sinus rhythm, heart rate 82, no ST segment depression or elevation, no T-wave inversion, QTC 439 -physical exam was reassuring, no rebound or guarding, no significant abdominal pain. -urinalysis negative for UTI Differential Diagnosis Differential Diagnoses: The differential diagnosis associated with the presentation includes (Viral syndrome, gastritis, gastroenteritis) Lab Data [facility] Lab Attestation statement: I reviewed the patient's lab results. 03/01/24 02:43 03/01/24 02:43 Labs: Lab Results 03/01/24 03/01/24 Range/Units 02:43 06:45 WBC 8.7 (4.8-10.8) X10*3/uL RBC 4.18 L (4.20-5.50) X10*6/uL Hgb 13.2 (12.0-16.0) g/dl Hct 39.3 (37.0-47.0) % MCV 94.0 (80.0-98.0) fL MCH 31.6 (27.0-33.0) pg MCHC 33.6 (31.0-35.0) g/dl RDW 13.2 (11.0-16.0) % Plt Count 223 (160-400) X10*3/uL MPV 9.4 (9.4-12.3) fL Immature Gran % (Auto) 0.1 (0.0-0.4) % Neut % (Auto) 75.7 H (45-73) % Lymph % (Auto) 20.1 (20-40) % Carlisle % (Auto) 3.6 (2-11) % Eos % (Auto) 0.3 (0-4) % Baso % (Auto) 0.2 (0-2) % Lymph # (Auto) 1.8 (1.2-4.9) X10*3/uL [place] # (Auto) 0.3 (0.1-1.2) X10*3/uL Eos # (Auto) 0.0 (0.0-0.4) X10*3/uL Baso # (Auto) 0.0 (0.0-0.2) X10*3/uL Abs Immat Gran (auto) 0.01 (0.00-0.03) X10*3/uL Absolute Neuts (auto) 6.6 (2.0-8.3) x10*3/uL Absolute Nucleated RBC 0.000 (0.0-0.012) X10*3/uL Nucleated RBC % (auto) 0.0 (0.0-0.2) /100WBC Sodium 143 (135-145) mmol/L Potassium 3.4 (3.3-5.1) mmol/L Chloride 107 (96-108) mmol/L Carbon Dioxide 23 (22-29) mmol/L Anion Gap 16 (12-20) BUN 24 H (9-16) mg/dL Creatinine 0.96 (0.5-1.4) mg/dL Estim Creat Clear Calc 80.2 Estimated GFR > 60 Random Glucose 134 H (60-115) mg/dL Calcium 9.5 (8.4-10.2) mg/dL Total Bilirubin 0.4 (0.0-1.0) mg/dL AST 24 (5-31) U/L ALT 15 (0-31) U/L Alkaline Phosphatase 77 (39-117) U/L Total Protein 9.2 H (6.5-8.0) g/dL Albumin 4.4 (3.5-5.0) g/dL Lipase 15 (8-78) U/L Urine Color Yellow Urine Appearance Clear Urine pH 6.5 (5.0-9.0) Ur Specific Milligan 1.025 (1.005-1.025) Urine Protein Negative (Neg-Trace) mg/dL Urine Glucose (UA) Negative (Negative) mg/dL Urine Ketones Negative (Negative) mg/dL Urine Blood Negative (Negative) Urine Nitrite Negative (Negative) Ur Leukocyte Esterase Negative (Negative) Urine RBC 0-2 (0-2) /HPF Urine WBC 0-5 (0-5) /HPF Ur Squamous Epith Cells 6-10 (0-2) /HPF Urine Bacteria 1+ (None Seen) Hyaline Casts 0-2 (0-2) /LPF Urine Test NEGATIVE (NEGATIVE) Urine Opiates Screen Not Detected (Not Detect) Ur Buprenorphine Scrn Not Detected (Not Detect) ng/mL Ur Oxycodone Screen Not Detected (Not Detect) ng/mL Urine Methadone Screen Positive H (Not Detect) ng/mL Urine Fentanyl Screen Not Detected (Not Detect) Ur Barbiturates Screen Not Detected (Not Detect) Ur Phencyclidine Scrn Not Detected (Not Detect) Ur Amphetamines Screen Not Detected (Not Detect) U Benzodiazepines Scrn Not Detected (Not Detect) Urine Cocaine Screen Not Detected (Not Detect) U Marijuana (THC) Screen Not Detected (Not Detect) Medications Administered Discontinued Medications Generic Name Dose Route Start Last Admin Trade Name Freq PRN Reason Stop Dose Admin Sodium Chloride 1,000 mls @ 999 mls/hr 03/01/24 05:30 03/01/24 06:35 Ns IVCONT 03/01/24 06:30 Infused .Q1H1M ONE Infusion Ondansetron HCl 4 mg 03/01/24 03:19 03/01/24 03:32 Ondansetron Hcl 4 Mg/2 Ml Vial IVPUSH 03/01/24 03:20 4 mg ONCE ONE Administration Discharge Plan Discharge Clinical Impression: Nausea & vomiting Patient Disposition: Home, Self-Care Instructions: Acute Nausea and Vomiting (ED) Additional Instructions: Please follow-up with your primary care physician tomorrow. If you have any worsening or new symptoms, please return to the emergency room or call 911 Prescriptions: New ondansetron 4 mg tablet,disintegrating 4 mg PO Q6H PRN (Reason: nausea and vomiting) Qty: 14 0RF No Action bisacodyl [Dulcolax (bisacodyl)] 5 mg tablet,delayed release (DR/EC) 10 mg PO ONCE 3 Days Qty: 6 0RF Rx Instructions: Take 2 tablets at 12 pm starting 3 days before colonoscopy polyethylene glycol 3350 [Miralax] 17 gram/dose powder 17 g PO DAILY 1 Days Qty: 238 0RF Rx Instructions: Mix Miralax with 64 oz(8 cups) of Crystal light. Take 2 tablets of Dulcolax qt 12 pm. Wait to have your 1st bowel movement, then begin drinking Miralax. Drink a glass of Miralax every 10-15 minutes until you are finished. You will drink at least another 4 cups of clear liquid of your choice over the next 2 hours. Please drink as many clear liquids as possible You may have clear liquids up to four hours before your procedure omeprazole 20 mg capsule,delayed release(DR/EC) 20 mg PO BID Qty: 180 0RF clonidine HCl 0.1 mg tablet 0.1 mg PO BID PRN (Reason: for anxiety) 30 Days Qty: 60 1RF lidocaine HCl [Lidocaine Viscous] 2 % solution 1 appl mucous membrane TID PRN (Reason: pain) Qty: 100 0RF prednisone 20 mg tablet 20 mg PO DAILY Qty: 5 0RF sennosides-docusate sodium [Lax Stool Softener With Senna] 8.6-50 mg tablet 1 tab-cap PO BEDTIME 30 Days Qty: 30 3RF Print Language: Monegasque
[2024-03-01] MEDS: 0.9 % Sodium Chloride 1,000 ML 999 ML IVCONT (05:36)
[2024-03-01 06:07] VITALS: BP 124/61; PULSE 92; RESP 20; TEMP 37.8; O2SAT 99
--- NOTE | 2024-03-01 06:35 | PC.NURSE ---
pt has been sleeping, and requested to when aroused provide a urine sample. Pt has been unable to urinate for this RN.
[2024-03-01 07:01] LABS: Appearance Urine Clear; Color Urine Yellow; Glucose Urine UA Negative (Negative); Leukocyte Esterase Urine Negative (Negative); Nitrite Urine Negative (Negative); PH 6.5 (5.0-9.0); Specific Gravity - Urine 1.025 (1.005-1.025); Urine Blood Negative (Negative); Urine Ketones Negative (Negative); Urine Protein Negative (Neg-Trace)
[2024-03-01 07:02] LABS: Amphetamine Screen Urine Not Detected (Not Detect); Barbiturates, Urine Not Detected (Not Detect); Benzodiazepines Screen Urine Not Detected (Not Detect); Buprenorphine Scr Not Detected (Not Detect); Cannabinoid Screen Urine Not Detected (Not Detect); Cocaine Screen Urine Not Detected (Not Detect); Fentanyl, urine Not Detected (Not Detect); Methadone Screen, Urine Positive (Not Detect); Opiate Screen Urine Not Detected (Not Detect); Oxycodone Screen Urine Not Detected (Not Detect); Phencyclidine Screen Urine Not Detected (Not Detect); UPreg QC Valid YES; Urine Pregnancy NEGATIVE (NEGATIVE)
[2024-03-01 07:06] LABS: Bacteria Urine 1+ (None Seen); Hyaline Casts Urine 0-2 /LPF (0-2); RBC Urine 0-2 /HPF (0-2); WBC Urine 0-5 /HPF (0-5)
[2024-03-01 07:28] VITALS: BP 126/60; PULSE 88; RESP 18; TEMP 37.1; O2SAT 99
== END 2024-03-01 07:32 | disposition home or self-care (01) ==
PROVIDERS: Emergency Provider Emergency Medicine
DX: R11.2 Nausea with vomiting, unspecified (principal); R10.12 Left upper quadrant pain; R94.31 Abnormal electrocardiogram [ECG] [EKG]; F17.210 Nicotine dependence, cigarettes, uncomplicated; Z51.81 Encounter for therapeutic drug level monitoring; Z79.899 Other long term (current) drug therapy
CPT/HCPCS: 80053; 80307; 80358; 81001; 81025; 83690; 85025; 93005; 96361; 96374; 99284; 99285; J2405

== ENCOUNTER → 2024-03-01 03:11 | Outpatient (BNV) | payer OTHER, SELFPAY | PROVIDERS: Emergency Provider Emergency Medicine; Visit Provider Internal Medicine | DX: R10.9 Unspecified abdominal pain (principal); R94.31 Abnormal electrocardiogram [ECG] [EKG] | CPT/HCPCS: 93010 ==

== ENCOUNTER 2024-03-12 10:36 | Outpatient (AMB) | payer OTHER, SELFPAY ==
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
[2024-03-12 10:58] VITALS: BP 120/62; PULSE 76; O2SAT 98; BMI 32.1
== END 2024-03-12 11:39 | disposition home or self-care (01) ==
PROVIDERS: PCP Family Medicine; Visit Provider Physician Assistant Medical
DX: R11.2 Nausea with vomiting, unspecified (principal); G89.4 Chronic pain syndrome; K29.50 Unspecified chronic gastritis without bleeding; Z12.11 Encounter for screening for malignant neoplasm of colon
CPT/HCPCS: 99214; G2211

== ENCOUNTER 2024-03-12 11:53 | Outpatient (REF) | payer OTHER, SELFPAY ==
[2024-03-12 14:54] LABS: Amphetamine Screen Urine Not Detected (Not Detect); Barbiturates, Urine Not Detected (Not Detect); Benzodiazepines Screen Urine Not Detected (Not Detect); Buprenorphine Scr Not Detected (Not Detect); Cannabinoid Screen Urine Not Detected (Not Detect); Cocaine Screen Urine Not Detected (Not Detect); Fentanyl, urine POSITIVE (Not Detect); Methadone Screen, Urine Positive (Not Detect); Opiate Screen Urine Not Detected (Not Detect); Oxycodone Screen Urine Not Detected (Not Detect); Phencyclidine Screen Urine Not Detected (Not Detect)
== END 2024-03-12 11:54 | disposition home or self-care (01) ==
LOC: HO.WFDLDS 11:53
PROVIDERS: Visit Provider Physician Assistant Medical
DX: F11.20 Opioid dependence, uncomplicated (principal)
CPT/HCPCS: 80307

== ENCOUNTER 2024-08-06 12:39 | Outpatient (REF) | payer MEDICARE, SELFPAY ==
[2024-08-06 13:15] LABS: MANUAL DIFF FLAG NO
[2024-08-06 13:38] LABS: Basophils Percent Auto 0.3 % (0-2); Eosinophils Absolute Auto 0.1 X10*3/uL (0.0-0.4); Eosinophils Percent Auto 2.3 % (0-4); Hematocrit 37.5 % (37.0-47.0); Hemoglobin 12.2 g/dl (12.0-16.0); Imm Gran Abs Auto 0.01 X10*3/uL (0.00-0.03); Imm Gran Pct Auto 0.2 % (0.0-0.4); Lymphocytes Absolute Auto 3.2 X10*3/uL (1.2-4.9); Lymphocytes Percent Auto 52.1 % (20-40); Mean Corpuscular HGB Conc 32.5 g/dl (31.0-35.0); Mean Corpuscular Hemoglobin 31.4 pg (27.0-33.0); Mean Corpuscular Volume 96.4 fL (80.0-98.0); Monocytes Absolute Auto 0.5 X10*3/uL (0.1-1.2); Monocytes Percent Auto 8.5 % (2-11); Neutrophils Absolute Auto 2.3 x10*3/uL (2.0-8.3); Neutrophils Percent Auto 36.6 % (45-73); Platelet Count 222 X10*3/uL (160-400); Red Blood Count 3.89 X10*6/uL (4.20-5.50); Red Cell Distribution Width 12.7 % (11.0-16.0); White Blood Count 6.1 X10*3/uL (4.8-10.8)
[2024-08-06 14:08] LABS: Alanine Aminotransferase 19 U/L (0-31); Anion Gap 9 (12-20); Aspartate Amino Transferase 28 U/L (5-31); Carbon Dioxide 31 mmol/L (22-29); Chloride 104 mmol/L (96-108); Estimated Glomerular Filt Rate > 60; Potassium 3.9 mmol/L (3.3-5.1); Sodium 140 mmol/L (135-145)
[2024-08-06 15:12] LABS: CT PCR NOT DETECTED (Not Detect.); NG PCR NOT DETECTED (Not Detect.)
[2024-08-07 08:35] LABS: HBsAGNum1 0.36 S/CO (0.00-0.99); HIV Num 1 869.88 S/CO (0.00-0.99); Hepatitis B Surface Antigen Negative (Negative)
[2024-08-07 08:42] LABS: Syphilis Screen Nonreactive (Nonreactive)
[2024-08-07 13:11] LABS: HIV Num 2 876.98 S/CO
[2024-08-07 13:12] LABS: HIV AB/AG Reactive (Nonreactive); HIV Num 3 903.78 S/CO
[2024-08-08 19:53] LABS: HCV Log PCR <1.18 NOT DETECTED Log IU/mL (NOT DETECTED); HepC Viral Load <15 NOT DETECTED IU/mL (NOT DETECTED)
[2024-08-10 18:14] LABS: Absolute CD3 Count 1397 cells/uL (840-3060); Absolute CD4 Count 779 cells/uL (490-1740); Absolute CD8 Count 624 cells/uL (180-1170); Absolute Lymphocytes 2550 cells/uL (850-3900); CD4 CD8 Ratio 1.25 (0.86-5.00); Percent CD3 Cells 55 % (57-85); Percent CD4 Cells 31 % (30-61); Percent CD8 Cells 24 % (12-42)
[2024-08-10 18:53] LABS: HIV 1 Antibody POSITIVE (NEGATIVE); HIV 2 Antibody NEGATIVE (NEGATIVE)
== END 2024-08-06 12:40 | disposition home or self-care (01) ==
LOC: HO.LAB 12:39
PROVIDERS: PCP Family Medicine; Visit Provider Internal Medicine Infectious Disease
DX: B20 Human immunodeficiency virus [HIV] disease (principal)
CPT/HCPCS: 36415; 80051; 82565; 84450; 84460; 85025; 86359; 86360; 86701; 86702; 86780; 87340; 87389; 87491; 87522; 87591

== ENCOUNTER 2024-11-13 12:18 | Outpatient (REF) | payer MEDICARE, SELFPAY ==
[2024-11-16 06:19] LABS: TS Negative Control Passed; TS Panel A 0; TS Panel B 0; TS Positive Control Passed; TSpotTB Negative (Negative)
== END 2024-11-13 12:19 | disposition home or self-care (01) ==
LOC: HO.LAB 12:18
PROVIDERS: PCP Family Medicine; Visit Provider Family Medicine
DX: Z11.1 Encounter for screening for respiratory tuberculosis (principal)
CPT/HCPCS: 36415; 86481

== ENCOUNTER 2024-11-28 15:02 | Outpatient (AMB) | payer MEDICARE, SELFPAY ==
--- NOTE | 2024-11-28 15:09 | A.OFFPC_ITS ---
Vital Signs 11/28/24 15:17 Height 5 ft 3.5 in Weight 185 lb 2 oz BMI 32.3 BP 126/60 Blood Pressure Location Rt brachial Position Sitting Respiration 14 Pulse 61 Pulse Source Pulse Oximeter Temp 99.0 F Temp Source Oral Pulse Oximetry (%) 98 Oxygen Delivery Method Room Air Intake Visit Reasons: Re-Est. Care / Requesting Physical Intake Note: patient is scheduled to re-establish care Airplane Fueler Required: No Allergies naproxen [From NAPROSYN] Allergy (Intermediate, Verified 11/28/24 15:11) PALPITATIONS trazodone [TRAZODONE] Allergy (Unknown, Verified 11/28/24 15:11) UNKNOWN, palpitations Medication List - Last Reconciled 11/28/24 by José Antonio Neumann MD betamethasone valerate 0.1% 1 appl topical DAILY PRN 14 days bisacodyl (Dulcolax (bisacodyl)) 10 mg (2 x 5 mg) PO ONCE 3 days lidocaine HCl 2% (Lidocaine Viscous) 1 appl mucous membrane TID PRN omeprazole 20 mg PO BID 90 days polyethylene glycol 3350 (Miralax) 17 grams PO DAILY 1 day sennosides-docusate sodium 8.6-50 mg (Laxative Stool Softener With Senna) 1 tab- cap PO BEDTIME 30 days Tobacco use date assessed: 11/28/24 Dental Screening Dental Screen Date: 11/28/24 Did you have a dental visit in the last 12 months?: Yes Did you have a dental problem in the last 6 months where you did not have access to dental care?: Yes Was dental information given to patient?: No HPI Re-Est. 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 Has complaints of psoriatic plaque on her R anterior suárez. Denies any itchiness. Reports RUQ pain, intermittent. Had last felt pain 2 days ago. She notes experienced this pain the entire day. Drinking water helps with the pain. She reports ongoing neck pain, back pain. Pt notes FHx of heart disease. HPI Comments History of Present Illness Details Documentation assistance for José Antonio Neumann MD, was provided by Bryce Hernandez,? Reversing [employer] on 11/28/2024 at 3:47 PM EST. I, Dr. Neumann, have read, observed, and verified documentation. ?? [facility] Medical History Kidney stones History of hepatitis C History of heroin abuse HIV positive Fibromyalgia Breast cancer Asthma Surgical History History of lumpectomy Family History (Updated 11/28/24 @ 15:17 by JORGE Saxena) Father Thrombocytopenia Mother HTN (hypertension) CVD (cardiovascular disease) CHF (congestive heart failure) Diabetes Maternal Grandfather CVD (cardiovascular disease) S/P triple vessel bypass Sister No problems noted. Sister No problems noted. Daughter No problems noted. Daughter No problems noted. Daughter No problems noted. Social History Housing: Apartment Alcohol intake: never Patient Tobacco Use Status: Former Tobacco user Cigarettes Per Day: 2 e-Cigarette/Vaping Use: Never Used Second Hand Smoke Exposure: Yes service: No Current occupational status: unemployed Current occupational exposures/hazards: No Cognitive needs: No Hearing needs: No Vision needs: No Questionnaire PHQ-9 Over the last 2 weeks, how often have you been bothered by any of the following problems? 1. Little interest or pleasure in doing things: not at all 2. Feeling down, depressed, or hopeless: several days 3. Trouble falling or staying asleep, or sleeping too much: several days 4. Feeling tired or having little energy: several days 5. Poor appetite or overeating: nearly every day 6. Feeling bad about yourself - or that you are a failure or have let yourself or your family down: several days 7. Trouble concentrating on things, such as reading the newspaper or watching television: nearly every day 8. Moving or speaking so slowly that other people could have noticed. Or the opposite - being so fidgety or restless that you have been moving around a lot more than usual: nearly every day 9. Thoughts that you would be better off or of hurting yourself in some way: not at all Total score: 13 Depression Screening Interpretation: Positive Depression Screening Done: Yes 39608 - PHQ-9 Billing: Yes Source: Developed by Drs. Chester Ricci, Alicia ChenIrving and colleagues, with an educational alex from [employer]. Thrive Questionnaire Date Thrive assessed: 09/29/21 I am a: Patient What is your living situation today?: I have a steady place to live Within the past 12 months, did the food you bought not last and you didn't have the money to get more?: I choose not to answer this question Within the past 12 months, did you worry whether your food would run out before you got money to buy more?: I choose not to answer this question Do you have trouble paying for medicines?: No Do you have trouble getting transportation to medical appointments?: No Do you have trouble paying your heating and electricity bill?: I choose not to answer this question Do you have trouble taking care of your child, family member or friend?: I choose not to answer this question Do you have trouble with day-to-day activities such as bathing, preparing meals, shopping, managing finances, etc.?: I choose not to answer this question Are you currently unemployed and looking for a job?: I choose not to answer this question Are you interested in more education?: I choose not to answer this question Please select the resources that you would like help with: None Currently or been in a relationship where the following occur: I choose not to answer THRIVE Score: 0 AUDIT C Alcohol Use Questionnaire (AUDIT-C) 1. How often do you have a drink containing alcohol?: Never Total Score: 0 HUBER-7 AMB Questionnaire HUBER-7 Date HUBER - 7 assessed: 11/28/24 Feeling nervous, anxious, or on edge: 1 = Several days Not being able to stop or control worryin = Several days Worrying too much about different things: 1 = Several days Trouble relaxin = Several days Being so restless that it is hard to sit still: 1 = Several days Becoming easily annoyed or irritable: 1 = Several days Feeling afraid as if something awful might happen: 3 = Nearly every day Total HUBER-7 score (0-4 normal; 5-9 mild; 10-14 moderate; 15-21 severe): 9 Source: Developed by Drs. Chester Ricci, Irving Gramajo and colleagues, with an educational alex from [employer]. HUBER-7 Assessment Billing HUBER-7 Assessment Tool: HUBER-7 Assessment 81542 Review of Systems Const Denies chills, Denies fatigue, Denies fever(s), Denies headache(s) and Denies weakness ENT Denies dizziness and Denies headache(s) Card Denies dyspnea Resp Denies cough, Denies dyspnea, Denies wheezing and Denies other (shortness of breath) GI Reports abdominal pain Musc Denies numbness and Denies tingling Neuro Denies dizziness, Denies headache(s), Denies numbness, Denies tingling and Denies weakness Psych Denies anxiety and Denies depression Endo Denies fatigue Aller/Immun Denies wheezing Physical exam (Primary Care) Vital Signs: Last Vital Signs Temp 99.0 F 11/28/24 15:17 Pulse 61 11/28/24 15:17 Resp 14 11/28/24 15:17 BP 126/60 11/28/24 15:17 Pulse Ox 98 11/28/24 15:17 Oxygen Delivery Method Room Air 11/28/24 15:17 BMI result Body Mass Index 32.3 Tobacco/Smoking Status: Tobacco use Status Tobacco use date assessed 11/28/24 11/28/24 15:14 Patient Tobacco Use Status Former Tobacco user 11/28/24 15:22 e-Cigarette/Vaping Use Never Used 11/28/24 15:14 PHQ-9: PHQ-9 Score PHQ-9: Total score 13 11/28/24 15:14 Depression Screening Interpretation: Positive Thrive Assessment: Date of Thrive Assessment Date Thrive assessed 09/29/21 11/28/24 15:14 Currently or been in a relationship where the following occur: I choose not to answer Const General: well developed; No acute distress Nutritional Appearance: well nourished Orientation/consciousness: patient oriented x3 [facility] Head: Yes normocephalic and Yes atraumatic Eyes General: appearance normal, both eyes and all related structures Pupils: Equal, round and reactive pupils present EOM: EOMs intact bilaterally Resp Effort & Inspection: normal respiratory effort Auscultation: clear to auscultation bilaterally Cardio Rate: regular rate Rhythm: regular rhythm Heart sounds: S1 normal heart sound present, S2 normal heart sound present, no gallops, no murmurs and no rubs Neuro General: patient oriented x3 and gait normal Cranial nerves: Yes Equal, round and reactive pupils present Psych Affect: normal affect Coding Level of Care Code Est Pt Level 4 (62157) Diagnoses RUQ pain R10.11 Chest pain R07.9 Neck pain M54.2 Sleep apnea G47.30 Psoriasis L40.9 Family history of coronary artery disease Z82.49 Additional Codes HUBER-7 Assessment Billing - HUBER-7 Assessment Tool: HUBER-7 Assessment 16296 ([id number]) PHQ-9 - 36404 - PHQ-9 Billing: Yes ([id number]) Assessment & Plan Assessment & Plan (1) RUQ pain: Code(s): R10.11 - Right upper quadrant pain Category: Medical Plan: RUQ pain Gall bladder or duct pain vs constipation are likely. Check U/S Hydrate well. Avoid fatty foods (2) Chest pain: Code(s): R07.9 - Chest pain, unspecified Category: Medical Plan: EKG: ?EKG?shows?sinus?bradycardia?with?heart?rate?57?DPM,?normal?axis,?no?hypertrophy ,?no?ST-T-wave?changes. (3) Neck pain: Code(s): M54.2 - Cervicalgia Category: Medical Plan: Chronic?neck?and?back?pain Patient?would?like?a?referral?to?her?chiropractor?again Referred (4) Sleep apnea: Code(s): G47.30 - Sleep apnea, unspecified Category: Medical Plan: Patient?has?fatigue?and?difficulty?with?sleeping?and?has?been?told?that?she?hold ?her?breath?and?stops?breathing?while?sleeping Referred?to?Sleep?Medicine (5) Psoriasis: Code(s): L40.9 - Psoriasis, unspecified Category: Medical Plan: Plaque-like?lesion?on?her?right?anterior?suárez Will?give?her?betamethasone (6) Family history of coronary artery disease: Code(s): Z82.49 - Family history of ischemic heart disease and other diseases of the circulatory system Category: Medical Plan: Patient?notes?recent?episodes?of?chest?pain?and?has?been?history?coronary?artery ?disease Checking?EKG - see?above Orders: Orders US abdomen complete Today R10.11 - Right upper quadrant pain AMB EKG-In Office Today R07.9 - Chest pain, unspecified, Z82.49 - Family history of ischemic heart disease and other diseases of the circulatory system Microalbumin, Random (w Creat) Today I10 - Essential (primary) hypertension Lipid Panel Today Z00.00 - Encounter for general adult medical examination without abnormal findings UA CC w/rflx Micro + Cult Today Z00.00 - Encounter for general adult medical examination without abnormal findings Comprehensive [place]. Panel Fast Today Z00.00 - Encounter for general adult medical examination without abnormal findings Complete Blood Count Auto Diff Today Z00.00 - Encounter for general adult medical examination without abnormal findings TSH reflex Free T4 Today Z00.00 - Encounter for general adult medical examination without abnormal findings Referrals Chiropractic Referral M54.9 - Dorsalgia, unspecified Sleep Medicine Referral G47.30 - Sleep apnea, unspecified Medications: New betamethasone valerate 0.1% 1 appl topical DAILY 14 days PRN 15 grams 1RF skin irritation
[2024-11-28 15:17] VITALS: BP 126/60; PULSE 61; RESP 14; TEMP 37.2; O2SAT 98; BMI 32.3
--- OUTSIDE RECORDS SUMMARY | 2024-11-28 17:32 | XMS_ITS | Clinical Summary ---
Author Organization [employer] Address [address] [place] [address] Care Team Providers Care American [employer] Studies Professor Name Role Phone Unavailable Primary Care Provider Unavailabl e Immunizations Name Administration Dates Next Due Hep B, adult 04/06/2015, 4,08/09/2002,07/09 Influenza injectable quadriv alent IIV4 with preservative 09/28/2019,05/29/2018 Influenza injectable quadriv alent preservative free 05/13/2022,09/06/2019 Influenza, IIV3, injectable 05/29/2008, 7 Pfizer Covid-19 Vaccine 12+ 10/22/2022 Pneumococcal Polysaccharide PPSV23 2004 Tdap 12/10/2016 Social History Tobacco Use Types Packs/Day Years Used Date Smoking Tobacco: Never Assessed Comments Unknown Sex and Gender Information Value Date Recorded Sex Assigned at Female 06/28/2022 10:37 AM EDT Legal Sex Female 10:37 AM EDT Gender Identity Female 06/28/2022 10:37 AM EDT Sexual Orientation Bisexual 06/28/2022 10 :37 AM EDT Plan of Treatment Health Maintenance Due Date Last Done Comments CT Colonography 1978 Colonoscopy 1978 Colorectal Cancer Screening 1978 Depression Screening 1978 FIT DNA/Cologuard 1978 FIT 1978 FOBT 1978 SDOH Screening 1978 Sigmoidoscopy 1978 Meningococcal Vaccine (1 - Risk 2-dose series) 1980 Alcohol/Substance Use Screening 1990 Tobacco Screening 1990 Family Planning (PISQ) 1993 Hepatitis A Vaccines (1 of 2 - Risk 2-dose series) 1997 Zoster Vaccines (1 of 2) 1997 Pap Smear 1999 Pneumococcal Vaccine: Pediatrics (0 to 5 Years) and At-Risk Patients (6 to 49) Years) (2 of 2 - PCV) 2005 2004 Cervical Cancer Screening 2008 HPV/Cotest 2008 COVID-19 Vaccine (2 - Pfizer risk series) 11/12/2022 10/22/2022 Influenza Vaccine (#1) 2024 2, 09/28/2019, 09/06/2019, Additional history exists DTaP/Tdap/Td Vaccines (2 - Td or Tdap) 12/10/2026 12/10/2016 RSV Patients and Patients Aged 60 years or older (1 - 1-dose 75+ series) 2053 Hepatitis B Vaccines Completed 04/06/2015, 06/30/2004, 08/09/2002, Additional history exists HIV Screening Completed 09/30/2020 HIB Vaccines Aged Out No longer eligi ble based on patient's age to complete this topic HPV Vaccines Aged Out No longer eligi ble based on patient's age to complete this topic IPV Vaccines Aged Out No longer eligi ble based on patient's age to complete this topic RSV under 20 months Aged Out No longe r eligible based on patient's age to complete this topic Rotavirus Vaccines Aged Out No longer eligible based on patient's age to complete this topic Procedures Procedure Name Priority Date/Time Associated Diagnosis Comments [facility] HISTORICAL HIV 1 RNA, QUANTITATIVE REAL TIME PCR Routine 09/30/2020 2:48 PM EST from Last 3 Months or Most Recently Relevant to Health Maintenance Results * (ABNORMAL) HIV 1 RNA, QUANTITATIVE REAL TIME PCR (09/30/2020 2:48 PM EST) HIV 1 RNA, QN PCR 38(H) NOT DETECTED copies/mL [facility] HIV 1 RNA, QN PCR 1.58(H) NOT DETECTED Log copies/mL [facility] Comment: ?? This test was performed using Real-Time Polymerase Chain Reaction. ?? Reportable Range: 20 copies/mL to 10,000,000 copies/mL (1.30 log copies/mL to 7.00 log copies/mL). 09/30/2020 2:48 PM EST us Kolby Roldan MD HISTORICAL/NON ORDERABLE LABS Fi nal Result [facility] [address] [place] [address], from Last 3 Months or Most Recently Relevant to Health Maintenance Insurance [facility]
--- OUTSIDE RECORDS SUMMARY | 2024-11-28 17:32 | XMS_ITS | Clinical Summary ---
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 Caputo Chronic hepatitis C without mention of hepatic coma 1998 DX:Chronic hepatitis C witho ut mention of hepatic coma; COMMENT: successfully Tx'd by Dr. Caputo Unspecified symptom associat ed with female genital organs 2004 DX:Unspecified symptom assoc iated with female genital organs Marijuana abuse 10/27/07 +urine DX:Marijuana abu se; COMMENT: This violated her narcotic contract. 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 [facility] per Elsy Waters QUALITY CONTROL TECH Breast cancer 05/19/2010 DX:Breast cancer (HCC) Family History Relation Name Status Comments Brother Alive one brother Father Alive HTN, Diabetes, Hep C, HIV Maternal Grandfather prostat e CA, his sister's daughter has Breast CA Maternal Grandmother Alive healthy Mother Alive had surgery for hole in heart Paternal Grandfather Alive healthy Paternal Grandmother Alive healthy Sister Alive x3, one with sk in cancer Social History Tobacco Use Types Packs/Day Years Used Date Smoking Tobacco: Former Cigarettes Q uit: 08/29/2007 Smokeless Tobacco: Never Alcohol Use Standard Drinks/Week Comments No 0 (1 standard drink = 0.6 oz pur e alcohol) Comments Unknown Sex and Gender Information Value Date Recorded Sex Assigned at Not on file Legal Sex Female 2:26 AM EST Gender Identity Not on file Sexual Orientation Not on file Obstetrics History Plan of Treatment Health Maintenance Due Date Last Done Comments Breast Cancer Screening 1978 DTaP,Tdap,and Td Vaccines (1 - Tdap) 1997 Cervical Cancer Screening: P ap Smear 1999 COVID-19 Vaccine (2023-2 5 season) 2024 Influenza Vaccine (#1) 2024 8, 05/23/2007 Pneumococcal Vaccine: Pediatrics (0 to 5 Years) and At-Risk Patients (6 to 64 Years) Aged Out 2004 No longer eligible b ased on patient's age to complete this topic Hepatitis B Vaccines Completed 06/30/2004, 08/09/2002, 07/09/2002 HIB Vaccines Aged Out No longer eligi ble based on patient's age to complete this topic HPV Vaccines Aged Out No longer eligi ble based on patient's age to complete this topic Hepatitis A Vaccines Aged Out No long er eligible based on patient's age to complete this topic IPV Vaccines Aged Out No longer eligi ble based on patient's age to complete this topic MMR Vaccines Aged Out No longer eligi ble based on patient's age to complete this topic Meningococcal ACWY Vaccine Aged Out N o longer eligible based on patient's age to complete this topic Meningococcal B Vacine Aged Out No lo nger eligible based on patient's age to complete this topic RSV Immunization Patients Under 20 months Aged Out No longer eligible b ased on patient's age to complete this topic Varicella Vaccines Aged Out No longer eligible based on patient's age to complete this topic Care Teams Doffer Relationship Specialty Start Date End Date Sulma Yoo MD PCP - General 06/14/1997
== END 2024-11-28 16:29 | disposition home or self-care (01) ==
LOC: HO.HMCFM 15:03
PROVIDERS: PCP Family Medicine; Visit Provider Family Medicine
DX: R10.11 Right upper quadrant pain (principal); R07.9 Chest pain, unspecified; M54.2 Cervicalgia; G47.30 Sleep apnea, unspecified; L40.9 Psoriasis, unspecified; Z82.49 Family history of ischemic heart disease and other diseases of the circulatory system

== ENCOUNTER → 2024-11-28 15:02 | Outpatient (BNVA) | payer MEDICARE, SELFPAY | PROVIDERS: PCP Family Medicine; Visit Provider Family Medicine | DX: R10.11 Right upper quadrant pain (principal); R07.9 Chest pain, unspecified; M54.2 Cervicalgia; G47.30 Sleep apnea, unspecified; L40.9 Psoriasis, unspecified; Z82.49 Family history of ischemic heart disease and other diseases of the circulatory system | CPT/HCPCS: 96127; 99212 ==

== ENCOUNTER 2025-02-20 09:30 | Outpatient (REF) | payer MEDICARE, SELFPAY ==
[2025-02-20 09:50] LABS: MANUAL DIFF FLAG NO
--- OUTSIDE RECORDS SUMMARY | 2025-02-20 10:33 | XMS_ITS | Clinical Summary ---
Author Organization [facility] Address [address] [place] [address] Care Team Providers Care Software Test And Validation Engineer Name Role Phone Sulma Yoo MD Primary [...] ovarian dermoid Human immunodeficiency virus (HIV) disease (CMS/HCC V24, CMS/HCC V28) 1998 DX:Human immunodefi ciency virus (HIV) disease (HCC); COMMENT: Dr. Caputo Chronic [...] contract. Infiltrating ductal carcinom a of breast (CMS/HCC V24, CMS/HCC V28) 04/27/10 DX:Infiltrating duct al carcinoma of breast (HCC); COMMENT: core Bx R upper outer Grade 3. [facility] per Elsy Waters ACLS SPECIALIST Breast cancer (CMS/HCC V24, CMS/HCC V28) 05/19/2010 DX:Breast cancer (HCC) Family History Relation [...] Vaccine (2023-2 5 season) 2024 Influenza Vaccine (Season Ended) 2025 05/29/2008, 05/23/2007 Pneumococcal Vaccine: Pediatrics (0 to 5 [...] age to complete this topic Meningococcal B Vaccine Aged Out No l onger eligible based on patient's age to complete this topic RSV Immunization Patients Under 20 months Aged Out No longer eligible b ased on patient's age to complete this topic Varicella Vaccines Aged Out No longer eligible based on patient's age to complete this topic Care Teams Software Test And Validation Engineer Relationship Specialty Start Date End Date Sulma Yoo MD PCP - General 06/14/1997
[2025-02-20 10:41] LABS: Basophils Percent Auto 0.2 % (0-2); Eosinophils Absolute Auto 0.2 X10*3/uL (0.0-0.4); Eosinophils Percent Auto 3.6 % (0-4); Hematocrit 32.8 % (37.0-47.0); Hemoglobin 10.9 g/dl (12.0-16.0); Imm Gran Abs Auto 0.01 X10*3/uL (0.00-0.03); Imm Gran Pct Auto 0.2 % (0.0-0.4); Lymphocytes Absolute Auto 2.9 X10*3/uL (1.2-4.9); Lymphocytes Percent Auto 51.7 % (20-40); Mean Corpuscular HGB Conc 33.2 g/dl (31.0-35.0); Mean Corpuscular Hemoglobin 31.5 pg (27.0-33.0); Mean Corpuscular Volume 94.8 fL (80.0-98.0); Mean Platelet Volume 9.8 fL (9.4-12.3); Monocytes Absolute Auto 0.4 X10*3/uL (0.1-1.2); Neutrophils Absolute Auto 2.1 x10*3/uL (2.0-8.3); Neutrophils Percent Auto 37.3 % (45-73); Platelet Count 197 X10*3/uL (160-400); Red Blood Count 3.46 X10*6/uL (4.20-5.50); White Blood Count 5.6 X10*3/uL (4.8-10.8)
[2025-02-20 11:18] LABS: Alanine Aminotransferase 15 U/L (0-31); Albumin Level 3.9 g/dL (3.5-5.0); Alkaline Phosphatase 74 U/L (39-117); Anion Gap 11 (12-20); Aspartate Amino Transferase 45 U/L (5-31); Bilirubin Total 0.2 mg/dL (0.0-1.0); Blood Urea Nitrogen 19 mg/dL (9-16); Calcium 9.1 mg/dL (8.4-10.2); Carbon Dioxide 27 mmol/L (22-29); Chloride 108 mmol/L (96-108); Cholesterol 225 mg/dL (<200); Estimated Glomerular Filt Rate > 60; Glucose Fasting 91 mg/dL (60-99); HDL Cholesterol 37 mg/dL (>40); LDL Cholesterol Calculated 125 mg/dL (<100); Sodium 142 mmol/L (135-145); Total Protein 8.5 g/dL (6.5-8.0); Triglycerides 315 mg/dL (<150)
[2025-02-20 11:46] LABS: TSH reflex Free T4 3.43 uIU/mL (0.32-4.0)
[2025-02-21 10:59] LABS: Appearance Urine Turbid; Color Urine Yellow; Glucose Urine UA Negative (Negative); Leukocyte Esterase Urine Negative (Negative); Nitrite Urine Negative (Negative); Specific Gravity - Urine >= 1.030 (1.005-1.025); Urine Blood Negative (Negative); Urine Ketones Negative (Negative); Urine Protein Trace mg/dL (Neg-Trace)
[2025-02-21 11:39] LABS: Creatinine Urine 340.94 mg/dL; Microalbum/Creatinine Ratio Ur 14.3 ug/mg cr (<30)
== END 2025-02-20 09:31 | disposition home or self-care (01) ==
LOC: HO.LAB 09:30
PROVIDERS: PCP Family Medicine; Visit Provider Family Medicine
DX: Z00.00 Encounter for general adult medical examination without abnormal findings (principal)
CPT/HCPCS: 36415; 80053; 80061; 81003; 82043; 82570; 84443; 85025

== ENCOUNTER 2025-02-21 10:30 | Outpatient (REF) | payer MEDICARE, SELFPAY ==
--- OUTSIDE RECORDS SUMMARY | 2025-02-21 12:16 | XMS_ITS | Clinical Summary ---
Author Organization [employer] Address [address] [facility] [address] [place] [address] Care Team Providers Care Analysis Mgr Name Role Phone Unavailable Primary Care Provider Unavailabl e Immunizations Immunization Administration Dates Next Due Hep B, adult [...] FOBT 1978 SDOH Screening 1978 Sigmoidoscopy 1978 Disability Screening 1978 Meningococcal Vaccine (1 - Risk 2-dose series) 1980 Alcohol/Substance Use Screening 1990 Tobacco Screening 1990 Family Planning (PISQ) 1993 Hepatitis A Vaccines (1 of 2 - Risk 2-dose series) 1997 Zoster Vaccines (1 of 2) 1997 Pap Smear 1999 Pneumococcal Vaccine: Pediatrics (0 to 5 Years) and At-Risk Patients (6 to 49) Years (2 of 2 - PCV) 2005 2004 Cervical Cancer Screening 2008 HPV/Cotest 2008 COVID-19 Vaccine (2 - Pfizer risk series) 11/12/2022 10/22/2022 Influenza Vaccine (Season Ended) 2025 05/13/2022, 09/28/2019, 09/06/2019, Additional history exists DTaP/Tdap/Td Vaccines [...] RNA, QN PCR 38(H) NOT DETECTED copies/mL [facility] HIV 1 RNA, QN PCR 1.58(H) NOT DETECTED Log copies/mL [facility] Comment: This test was performed using Real-Time Polymerase Chain Reaction. Reportable Range: 20 copies/mL to 10,000,000 copies/mL (1.30 log copies/mL to 7.00 log copies/mL). 09/30/2020 2:48 PM EST us Kolby Roldan MD HISTORICAL/NON ORDERABLE LABS Fi nal Result [facility] Formerly [facility] [address]where [address] from Last 3 Months or Most Recently Relevant to Health Maintenance Insurance [facility] < 63 [place] [id number]
== END 2025-02-21 10:31 | disposition home or self-care (01) ==
LOC: HO.LNP 10:30
PROVIDERS: Visit Provider Family Medicine
DX: Z13.89 Encounter for screening for other disorder (principal)